=== PATIENT | male | born 1955 | race Caucasian/White ===

== ENCOUNTER 2017-06-08 02:34 | Emergency (ER) | payer OTHER ==
[~2017-06-08] VITALS: Ht 175.3 cm; Wt 86.2 kg
[2017-06-08 03:02] LABS: BASOPHILS # (AUTO) 0.1 (0.0-0.1); EOSINOPHILS # (AUTO) 0.2 (0.0-0.4); EOSINOPHILS % 2.1 % (0.0-6.0); HEMATOCRIT 43.9 % (38.2-49.6); HEMOGLOBIN 15.5 g/dL (14.0-18.0); LYMPHOCYTES # (AUTO) 1.1 (1.0-3.2); LYMPHOCYTES % 15.5 % (18.0-39.1); MEAN CORPUSCULAR HEMOGLOBIN 29.2 pg (28-32); MEAN CORPUSCULAR HGB CONC 35.3 g/dL (31-35); MEAN CORPUSCULAR VOLUME 82.8 fL (81-99); MONOCYTES # (AUTO) 0.6 (0.2-0.8); MONOCYTES % 7.7 % (4.4-11.3); NEUTROPHILS # (AUTO) 5.2 (2.1-6.9); NEUTROPHILS % 72.4 % (38.7-80.0); PLATELET COUNT 240 x10e3/uL (140-360); RED CELL DISTRIBUTION WIDTH 12.4 % (11.7-14.4)
[2017-06-08 03:18] LABS: ALANINE AMINOTRANSFERASE 21 IU/L (0-55); ALBUMIN 4.1 g/dL (3.5-5.0); ALBUMIN/GLOBULIN RATIO 1.3 (0.8-2.0); ALKALINE PHOSPHATASE 57 IU/L (40-150); ANION GAP 15.3 mmol/L (8-16); BLOOD UREA NITROGEN 16 mg/dL (7-26); BUN/CREATININE RATIO 12 (6-25); CALCIUM 9.4 mg/dL (8.4-10.2); CARBON DIOXIDE 24 mmol/L (22-29); CHLORIDE 103 mmol/L (98-107); CREATINE KINASE 71 IU/L (30-200); CREATININE, SERUM 1.31 mg/dL (0.72-1.25); EST GLOMERULAR FILTRATION RATE 55 ML/MIN (60-); GLUCOSE 112 mg/dL (74-118); POTASSIUM 4.3 mmol/L (3.5-5.1); SODIUM 138 mmol/L (136-145)
--- NOTE | 2017-06-08 04:24 | Diagnostic Imaging Report ---
EXAM: CHEST 2 VIEWS, PA and lateral ORDER DATE: 06/08/2017 2:48 AM TIME STAMP ON EXAM: 0304 hours INDICATION: Right upper chest pain COMPARISON: None FINDINGS: LINES/TUBES: None LUNGS: No consolidations or edema. PLEURA: No effusions or pneumothorax. HEART AND MEDIASTINUM: Normal size and contour. BONES AND SOFT TISSUES: No acute findings. IMPRESSION: No acute thoracic abnormality. Signed by: Dr. Letha Ocampo M.D. on 06/08/2017 4:20 AM
[2017-06-08 04:59] VITALS: BP 126/79
== END 2017-06-08 05:11 | disposition home or self-care (01) ==
LOC: ER 02:34
DX: R07.89 Other chest pain (principal)
CPT/HCPCS: 36415; 71046; 80053; 82550; 82553; 84484; 85025; 85379; 93005; 99284

== ENCOUNTER 2017-06-18 02:12 | Emergency (ER) | payer OTHER ==
[~2017-06-18] VITALS: Ht 175.3 cm; Wt 86.2 kg
--- OUTSIDE RECORDS SUMMARY | 2017-06-18 02:15 | XMS REPORT ---
Author Author [facility] Address Unknown Phone Unavailable Care Team Providers Care Human Insights Lead Ads Marketing Name Role Phone NUBIA OCHOA Unavailable Unavailable Problems This patient has no known problems. Allergies, Adverse Reactions, Alerts This patient has no known allergies or adverse reactions. Medications This patient has no known medications. Results Test Description Test Time Test Comments Text Results Atomic Results Result Comments CHEST 2 VIEWS [place] [address] Patient Name: SARAH MORATAYA MR #: [id number] : 1955 Age/Sex: 61/M Req #: [id number] [facility] [place] Physician: Ordered by: NUBIA OCHOA MD Report #: [id number] Location: ER Room/Bed: Procedure: [id number] DX/CHEST 2 VIEWS Exam Date: 06/08/17 Exam Time : 0305 REPORT STATUS: Signed EXAM: CHEST 2 VIEWS, PA and lateral ORDER DATE: 06/08/2017 2:48 AM TIME STAMP ON EXAM: 0304 hours INDICATION: Right upper chest pain COMPARISON: None FINDINGS: LINES/TUBES: None LUNGS: No consolidations or edema. PLEURA: No effusions or pneumothorax. HEART AND MEDIASTINUM: Normal size and contour. BONES AND SOFT TISSUES: No acute findings. IMPRESSION: No acute thoracic abnormality. Signed by: Dr. Princess Villanueva M.D. on 06/08/2017 4: 20 AM Dictated By: PRINCESS VILLANUEVA MD 9 Transcribed By: JOSELYN on 06/08/17419 COPY TO: NUBIA OCHOA MD
--- OUTSIDE RECORDS SUMMARY | 2017-06-18 02:15 | XMS REPORT | Continuity of Care Document ---
Author Author [facility] Organization [facility] Address [address] [place] [address] Phone Unavailable Care Team Providers Care Tankroom Worker Name Role Phone ARIN NOBLES MD PCP Insurance Providers Guarantor Markel Gooden Address [address] [place] [address] Email [email or web address] Payer Aet[employer] [facility] Care Policy Number [id number] Subscriber's Name Markel Gooden Relationship 18 Self / Same As Patient Group Number [id number] Group Name [place] [employer] Effective Date 17 Advance Directives Directive Response Recorded Date/Time Does the patient have an advance directive? No 04/15/14 8:11am If yes, is advance directive on file with [facility]? No 04/15/14 8:11am If not on file with [facility] will patient provide a copy? No 04/15/14 8:11am Do you have a Directive to Physician? No 06/08/17 2:30am Do you have a Medical Power of Solutions Sales Consultant? No 06/08/17 2:30am Do you have an out of hospital Do Not Resuscitate Order? No 06/08/17 2:30am Do you have any special needs we should be aware of? No 06/08/17 2:30am Do you have a support person here with you today? Yes 06/08/17 2:30am Did patient receive Notice of Privacy Practices? Yes 06/08/17 2:30am Did patient receive patient rights and responsibilities? Yes 06/08/17 2:30am Problems No problem information available. Medications No known medications. Social History No social history information available. Hospital Discharge Instructions No hospital discharge instruction information available. Plan of Care Discharge Date 06/08/17 5:11am Disposition HOME, SELF-CARE Condition at Discharge Stable Instructions/Education Provided Chest Pain - Chest Wall Forms Provided Work/School Excuse Prescriptions See Medication Section Referrals ARIN NOBLES MD Order Date: Call for an appointment Address: [address] [place] [id number] Additional Instructions/Education dc home follow up with pcp take meds as directed return to the er with any emergent condtions Functional Status No functional status information available. Allergies, Adverse Reactions, Alerts Allergen Type Severity Reaction Status Last Updated Codeine Allergy Unknown Active 06/08/17 Immunizations No immunization information available. Vital Signs Acute Vital Signs Vital Response Date/Time Temperature (Fahrenheit) 98.5 degrees F (97.6 - 99.5) 06/08/2017 4:59am Pulse Pulse Rate (adult) 80 bpm (60 - 90) 06/08/2017 4:59am Respiratory Rate 20 bpm (12 - 24) 06/08/2017 4:59am Blood Pressure 126/79 mm Hg 06/08/2017 4:59am Height 5 ft 9 in 06/08/2017 2:47am Weight 190 lb 06/08/2017 2:47am Body Mass Index 28.1 kg/m^2 06/08/2017 2:47am Results Laboratory Results Test Name Result Units Flags Reference Collection Date/Time Result Date/ Time Comments White Blood Count 7.14 x10e3/uL 4.8-10.8 06/08/2017 2:53am 06/08/2017 3 :03am Red Blood Count 5.30 x10e6/uL 4.3-5.7 06/08/2017 2:53am 06/08/2017 3: 03am Hemoglobin 15.5 g/dL 14.0-18.0 06/08/2017 2:53am 06/08/2017 3:03am Hematocrit 43.9 % 38.2-49.6 06/08/2017 2:53am 06/08/2017 3:03am Mean Corpuscular Volume 82.8 fL 81-99 06/08/2017 2:53am 06/08/2017 3: 03am Mean Corpuscular Hemoglobin 29.2 pg 28-32 06/08/2017 2:53am 06/08/2017 3:03am Mean Corpuscular Hemoglobin Concent 35.3 g/dL H 31-35 06/08/2017 2:53am 06/08/2017 3:03am Red Cell Distribution Width 12.4 % 11.7-14.4 06/08/2017 2:53am 2017 3:03am Platelet Count 240 x10e3/uL 140-360 06/08/2017 2:53am 06/08/2017 3: 03am Neutrophils (%) (Auto) 72.4 % 38.7-80.0 06/08/2017 2:53am 06/08/2017 3: 03am Lymphocytes (%) (Auto) 15.5 % L 18.0-39.1 06/08/2017 2:53am 06/08/2017 3 :03am Monocytes (%) (Auto) 7.7 % 4.4-11.3 06/08/2017 2:53am 06/08/2017 3: 03am Eosinophils (%) (Auto) 2.1 % 0.0-6.0 06/08/2017 2:53am 06/08/2017 3: 03am Basophils (%) (Auto) 1.0 % 0.0-1.0 06/08/2017 2:53am 06/08/2017 3:03am IM GRANULOCYTES % 1.3 % H 0.0-1.0 06/08/2017 2:53am 06/08/2017 3:03am Neutrophils # (Auto) 5.2 2.1-6.9 06/08/2017 2:53am 06/08/2017 3:03am Lymphocytes # (Auto) 1.1 1.0-3.2 06/08/2017 2:53am 06/08/2017 3:03am Monocytes # (Auto) 0.6 0.2-0.8 06/08/2017 2:53am 06/08/2017 3:03am Eosinophils # (Auto) 0.2 0.0-0.4 06/08/2017 2:53am 06/08/2017 3:03am Basophils # (Auto) 0.1 0.0-0.1 06/08/2017 2:53am 06/08/2017 3:03am Absolute Immature Granulocyte (auto 0.09 x10e3/uL 0-0.1 06/08/2017 2: 53am 06/08/2017 3:03am D-Dimer Quantitative (PE/DVT) 0.28 ug/mLFEU 0.00-0.45 06/08/2017 2:53am 06/08/2017 3:12am Sodium Level 138 mmol/L 136-145 06/08/2017 2:53am 06/08/2017 3:21am Potassium Level 4.3 mmol/L 3.5-5.1 06/08/2017 2:53am 06/08/2017 3:21am Chloride Level 103 mmol/L 98-107 06/08/2017 2:53am 06/08/2017 3:21am Carbon Dioxide Level 24 mmol/L 22-06/08/2017 2:53am 06/08/2017 3: 21am Anion Gap 15.3 mmol/L 8-06/08/2017 2:53am 06/08/2017 3:21am Blood Urea Nitrogen 16 mg/dL 7-06/08/2017 2:53am 06/08/2017 3:21am Creatinine 1.31 mg/dL H 0.72-1.25 06/08/2017 2:53am 06/08/2017 3:21am BUN/Creatinine Ratio 12 6-06/08/2017 2:53am 06/08/2017 3:21am Estimat Glomerular Filtration Rate 55 ML/MIN L 60- 06/08/2017 2:53am 3:21am Ranges were taken from the National Kidney Disease Education Program and the National Kidney Foundation literature. Reference ranges: 60 or greater: Normal 16-59 (for 3 consecutive months): Chronic kidney disease 15 or less: Kidney failure Glucose Level 112 mg/dL 74-118 06/08/2017 2:53am 06/08/2017 3:21am Calcium Level 9.4 mg/dL 8.4-10.2 06/08/2017 2:53am 06/08/2017 3:21am Total Bilirubin 0.6 mg/dL 0.2-1.2 06/08/2017 2:53am 06/08/2017 3:21am Aspartate Amino Transf (AST/SGOT) 16 IU/L 5-34 06/08/2017 2:53am 2017 3:21am Alanine Aminotransferase (ALT/SGPT) 21 IU/L 0-55 06/08/2017 2:53am 3:21am Total Protein 7.3 g/dL 6.5-8.1 06/08/2017 2:53am 06/08/2017 3:21am Albumin 4.1 g/dL 3.5-5.0 06/08/2017 2:53am 06/08/2017 3:21am Globulin 3.2 g/dL 2.3-3.5 06/08/2017 2:53am 06/08/2017 3:21am Albumin/Globulin Ratio 1.3 0.8-2.0 06/08/2017 2:53am 06/08/2017 3: 21am Alkaline Phosphatase 57 IU/L 40-150 06/08/2017 2:53am 06/08/2017 3: 21am Creatine Kinase 71 IU/L 30-200 06/08/2017 2:53am 06/08/2017 3:21am Creatine Kinase MB 0.60 ng/mL 0-5.0 06/08/2017 2:53am 06/08/2017 3: 25am Troponin I < 0.001 ng/mL 0-0.300 06/08/2017 2:53am 06/08/2017 3:25am Procedures Procedure Status Date Provider(s) X-ray of chest, two views Active 06/08/17 NUBIA OCHOA MD Encounters Encounter Location Arrival/Admit Date Discharge/Depart Date Attending Provider Departed Emergency Room [facility] 06/08/17 2:34am 5:11am NUBIA OCHOA MD
[2017-06-18] MEDS ORDERED: ASPIRIN 81 MG CHEW TAB PO ONE (02:30)
[2017-06-18 02:31] LABS: BASOPHILS # (AUTO) 0.1 (0.0-0.1); BASOPHILS % 1.2 % (0.0-1.0); EOSINOPHILS # (AUTO) 0.2 (0.0-0.4); EOSINOPHILS % 3.8 % (0.0-6.0); HEMATOCRIT 44.9 % (38.2-49.6); HEMOGLOBIN 15.6 g/dL (14.0-18.0); LYMPHOCYTES # (AUTO) 1.4 (1.0-3.2); LYMPHOCYTES % 23.3 % (18.0-39.1); MEAN CORPUSCULAR HEMOGLOBIN 29.1 pg (28-32); MEAN CORPUSCULAR HGB CONC 34.7 g/dL (31-35); MEAN CORPUSCULAR VOLUME 83.6 fL (81-99); MONOCYTES # (AUTO) 0.6 (0.2-0.8); MONOCYTES % 10.1 % (4.4-11.3); NEUTROPHILS # (AUTO) 3.5 (2.1-6.9); NEUTROPHILS % 60.1 % (38.7-80.0); PLATELET COUNT 241 x10e3/uL (140-360); RED BLOOD COUNT 5.37 x10e6/uL (4.3-5.7); RED CELL DISTRIBUTION WIDTH 12.2 % (11.7-14.4)
[2017-06-18 02:58] LABS: ALANINE AMINOTRANSFERASE 20 IU/L (0-55); ALBUMIN 4.1 g/dL (3.5-5.0); ALBUMIN/GLOBULIN RATIO 1.2 (0.8-2.0); ALKALINE PHOSPHATASE 55 IU/L (40-150); AMYLASE 41 U/L (25-125); ANION GAP 15.1 mmol/L (8-16); BLOOD UREA NITROGEN 20 mg/dL (7-26); BUN/CREATININE RATIO 14 (6-25); CALCIUM 9.3 mg/dL (8.4-10.2); CARBON DIOXIDE 26 mmol/L (22-29); CHLORIDE 103 mmol/L (98-107); CREATINE KINASE 56 IU/L (30-200); CREATININE, SERUM 1.41 mg/dL (0.72-1.25); EST GLOMERULAR FILTRATION RATE 51 ML/MIN (60-); GLUCOSE 110 mg/dL (74-118); LIPASE 22 U/L (8-78); POTASSIUM 4.1 mmol/L (3.5-5.1); SODIUM 140 mmol/L (136-145)
--- NOTE | 2017-06-18 03:29 | Diagnostic Imaging Report ---
EXAMINATION: CHEST 2 VIEWS INDICATION: Right chest pain. COMPARISON: 06/08/2017 FINDINGS: TUBES and LINES: None. LUNGS: Lungs are well inflated. Lungs are clear. There is no evidence of pneumonia or pulmonary edema. PLEURA: No pleural effusion or pneumothorax. HEART AND MEDIASTINUM: The cardiomediastinal silhouette is unremarkable. Calcified lymph nodes in the aortopulmonary window. BONES AND SOFT TISSUES: No acute osseous lesion. Soft tissues are unremarkable. UPPER ABDOMEN: No free air under the diaphragm. IMPRESSION: No acute thoracic abnormality. Signed by: Dr. Jose Wright M.D. on 06/18/2017 3:25 AM
--- NOTE | 2017-06-18 03:50 | Diagnostic Imaging Report ---
EXAM: Right Upper Quadrant Ultrasound INDICATION: Right upper quadrant pain, gallstones COMPARISON: None. TECHNIQUE: Transverse and longitudinal images of the right upper abdomen were obtained. FINDINGS: Liver: Size: 15.2 cm in the right midclavicular line, normal Appearance: Normal echogenicity, smooth contour Mass: No focal masses Gallbladder: Stones/Sludge: None Wall: 0.2 cm Appearance: No wall thickening, pericholecystic fluid or hydrops. Sonographic Cisse's Sign: Negative Bile Ducts: Intrahepatic Ducts: No dilatation Extrahepatic Ducts: Common bile duct measures 0.5 cm, no dilatation Pancreas: Incompletely visualized due to overlying bowel gas, but no abnormality identified involving the visualized portions of the pancreas. Kidneys: Length: Right 9.4 cm Echogenicity: Normal Collecting System: No hydronephrosis Stone: None Cyst/Mass: Minimally septated 1.4 x 1.6 x 1.3 cm cyst in the right kidney Vessels: Aorta: Difficult to visualize. Inferior Vena Cava: Difficult to visualized Main Portal Vein: 1.0 cm, normal size with hepatopetal flow. Free Fluid: No ascites or pleural effusion IMPRESSION: 1. Limited exam due to large amount of air in the bowel. 2. No evidence of gallstones or gallbladder wall thickening. Signed by: Dr. Jose Wright M.D. on 06/18/2017 3:46 AM
[2017-06-18 04:19] VITALS: BP 122/80
== END 2017-06-18 04:37 | disposition home or self-care (01) ==
LOC: ER 02:12
DX: R07.89 Other chest pain (principal); I10 Essential (primary) hypertension; N35.9 Urethral stricture, unspecified
CPT/HCPCS: 36415; 71046; 76705; 80053; 82150; 82550; 82553; 83690; 84484; 85025; 85379; 93005; 99284

== ENCOUNTER 2018-05-22 21:23 | Emergency (ER) | payer OTHER ==
[~2018-05-22] VITALS: Ht 175.3 cm; Wt 86.2 kg
--- OUTSIDE RECORDS SUMMARY | 2018-05-22 21:25 | XMS REPORT | Continuity of Care Document ---
Author Author [facility] Address Unknown Phone Unavailable Problems Problem Status Onset Date Classification Date Reported Comments Source N13.30 Active 08/25/2016 [facility] Back pain Active Problem 10/09/2016 [facility] Bronchitis Resolved Problem 10/09/2016 [facility] Diarrhea Resolved Problem 10/09/2016 [facility] Environmental allergies Resolved Problem 10/09/2016 [facility] Acid reflux Resolved Problem 10/09/2016 [facility] H/O mumps Resolved Problem 10/09/2016 [facility] Hx of bladder infections Resolved Problem 10/09/2016 [facility] History of tendonitis Resolved Problem 10/09/2016 [facility] History of kidney stones Resolved Problem 10/09/2016 [facility] Personal history of urinary infections(<span ID="[id number]">Confirmed</span>) Resolved Problem 10/09/2016 [facility] High blood cholesterol Resolved Problem 10/09/2016 [facility] Asthma Resolved Problem 10/09/2016 [facility] Incomplete bladder emptying Active Problem 10/09/2016 [facility] Arthritis Resolved Problem 10/09/2016 [facility] Nephrolithiasis Active Problem 10/09/2016 [facility] Left flank pain Active Problem 10/09/2016 [facility] BPH (<span ID="[id number]">Confirmed</span>) Active Problem 10/09/2016 [facility] Prostate cancer screening Active Problem 10/09/2016 [facility] Renal cyst, right Active Problem 10/09/2016 [facility] Slow urinary stream Active Problem 10/09/2016 [facility] Urethral stricture Active Problem 10/09/2016 [facility] Chicken pox Resolved Problem 10/09/2016 [facility] Vertigo Resolved Problem 10/09/2016 [facility] Warts Resolved Problem 10/09/2016 [facility] Medications Medication Details Route Status Patient Instructions Ordering Provider Order Date Source Allergies, Adverse Reactions, Alerts Substance Category Reaction Severity Reaction type Status Date Reported Comments Source Immunizations Immunization Date Given Site Status Last Updated Comments Source Results Order Name Results Value Reference Range Date Interpretation Comments Source Renal Lasix Scan NM Renal Lasix Scan NM EXAM: NM Kidney Imaging Vascular Flow Function Multiple Studies w wo Intervent DATE: 10/06/2016 10:16 AM CDT INDICATION: History of urethral stricture, evaluate for urinary obstruction and renal function. COMPARISON: None available TECHNIQUE: After intravenous administration of 5 mCi of technetium 99m MAG3, dynamic blood flow images followed by sequential static images through 45 minutes were obtained. Lasix was administered at 20 minutes into the study, with additional images post Lasix. FINDINGS: There is prompt and good perfusion, extraction, and excretion from both kidneys consistent with good renal function and no evidence of urinary tract obstruction. The right renal pelvis is mildly prominent. The T 1/2 max post Lasix administration is 4.2 minutes in the right kidney and 9.9 minutes in the left kidney (normal is equal or less than 10 minutes). Post void images demonstrate mild residual tracer accumulation in the right renal pelvis. The split function in the right kidney is 47% and in the left kidney is 53% which are within normal limits. IMPRESSION: 1. Normal bilateral renal function with no evidence of urinary tract obstruction. Mildly prominent right renal pelvis is identified. 2. The split function in the right kidney is 47% and in the left kidney is 53%. 3. The total effective renal plasma flow (ERPF) is 426 ml/min, adequate for the patient's age (normal is 600 +/- 100 ml/min). 4. The total MAG 3 clearance is 226 ml/min ( normal is 300 +/-70 ml/min). 10/06/2016 - - This report was dictated by a Representative Government Relations/Fellow. I have personally reviewed the images as well as the Resident's interpretation and agree with the findings. Read by: Alicia Khanna MD Resident: Alicia Khanna MD Dictated Date/time: 10/06/16 13:05 Electronically Signed by: Erika Morrow MD 10/06/16 17:23 FINAL REPORT [facility] Vital Signs Vital Sign Value Date Comments Source Encounters Location Location Details Encounter Type Encounter Number Reason For Visit Attending Provider ADM Date DC Date Status Source Outpatient [id number] [facility] 08/18/2016 Active [facility] Outpatient [id number] T[facility] 10/06/2016 10/07/2016 [facility] Outpatient [id number] [facility] 10/26/2016 Active [facility] Procedures Procedure Code Date Perfomer Comments Source Circumcision [id number] [facility] Colonoscopy [id number] [facility] Lithotripsy [id number] [facility] Ureteroscopy [id number] [facility]
--- OUTSIDE RECORDS SUMMARY | 2018-05-22 21:25 | XMS REPORT | Summary of Care ---
Author Author [facility] Organization [facility] Address Unknown Phone Unavailable Encounter HQ Karoline_eveline(JOSE) [id number] Date(s): 10/06/16 - 10/06/16 [facility] [address] [place] [address] Discharge Disposition: Home or Self Care Attending Physician: Chino Clarke MD Referring Physician: Chino Clarke MD Vital Signs No data available for this section Problem List Condition Effective Dates Status Health Status Informant Back pain(Confirmed) Active Bronchitis(Confirmed Resolved ) Diarrhea(Confirmed) Resolved Environmental Resolved allergies(Confirmed) Acid Resolved reflux(Confirmed) H/O mumps(Confirmed) Resolved Hx of bladder Resolved infections(Confirmed ) History of Resolved tendonitis(Confirmed ) History of kidney Resolved stones(Confirmed) Personal history of Resolved urinary (tract) infections(Confirmed ) High blood Resolved cholesterol(Confirme d) Asthma(Confirmed) Resolved Incomplete bladder Active emptying(Confirmed) Arthritis(Confirmed) Resolved Nephrolithiasis(Conf Active [facility]med) Left flank Active pain(Confirmed) BPH (benign Active prostatic hyperplasia)(Confirm ed) Prostate cancer Active screening(Confirmed) Renal cyst, Active right(Confirmed) Slow urinary Active stream(Confirmed) Urethral Active stricture(Confirmed) Chicken Resolved pox(Confirmed) Vertigo(Confirmed) Resolved Warts(Confirmed) Resolved Allergies, Adverse Reactions, Alerts No data available for this section Medications No data available for this section Results No data available for this section Immunizations No data available for this section Procedures Procedure Date Related Diagnosis Body Site Circumcision Colonoscopy Lithotripsy Ureteroscopy Social History Social History Type Response Smoking Status Never smoker; Exposure to Tobacco Smoke None; Cigarette Smoking Last 365 Days No; Reg Smoking Cessation Counseling No Assessment and Plan No data available for this section
== END 2018-05-22 21:50 | disposition home or self-care (01) ==
LOC: ER 21:23
DX: R07.89 Other chest pain (principal); S29.011A Strain of muscle and tendon of front wall of thorax, initial encounter; E78.5 Hyperlipidemia, unspecified
CPT/HCPCS: 93005; 99282

== ENCOUNTER 2019-12-28 11:12 | Emergency (ER) | payer MEDICARE ==
[~2019-12-28] VITALS: Ht 175.3 cm; Wt 83.9 kg
[2019-12-28] MEDS ORDERED: METOCLOPRAMIDE HCL 10 MG/2ML VIAL IV ONE (11:30)
[2019-12-28] MEDS ORDERED: DIPHENHYDRAMINE HCL INJ 50 MG/ML VIAL IV ONE (11:30)
[2019-12-28] MEDS ORDERED: MECLIZINE HCL 12.5 MG TAB PO ONE (11:30)
[2019-12-28 11:43] LABS: BASOPHILS # (AUTO) 0.1 (0.0-0.1); BASOPHILS % 1.4 % (0.0-1.0); EOSINOPHILS # (AUTO) 0.2 (0.0-0.4); EOSINOPHILS % 2.9 % (0.0-6.0); HEMATOCRIT 41.9 % (38.2-49.6); HEMOGLOBIN 14.4 g/dL (14.0-18.0); LYMPHOCYTES # (AUTO) 1.2 (1.0-3.2); LYMPHOCYTES % 21.4 % (18.0-39.1); MEAN CORPUSCULAR HEMOGLOBIN 28.4 pg (28-32); MEAN CORPUSCULAR HGB CONC 34.4 g/dL (31-35); MEAN CORPUSCULAR VOLUME 82.6 fL (81-99); MONOCYTES # (AUTO) 0.8 (0.2-0.8); MONOCYTES % 14.2 % (4.4-11.3); NEUTROPHILS # (AUTO) 3.3 (2.1-6.9); NEUTROPHILS % 59.2 % (38.7-80.0); PLATELET COUNT 260 x10e3/uL (140-360); RED BLOOD COUNT 5.07 x10e6/uL (4.3-5.7); RED CELL DISTRIBUTION WIDTH 11.9 % (11.7-14.4)
[2019-12-28 11:47] LABS: INR 0.93; PROTHROMBIN TIME 12.9 seconds (11.9-14.5)
[2019-12-28 11:55] LABS: ALANINE AMINOTRANSFERASE 28 IU/L (0-55); ALBUMIN 4.2 g/dL (3.5-5.0); ALBUMIN/GLOBULIN RATIO 1.8 (0.8-2.0); ALKALINE PHOSPHATASE 53 IU/L (40-150); ANION GAP 18.3 mmol/L (8-16); BLOOD UREA NITROGEN 15 mg/dL (7-26); BUN/CREATININE RATIO 11 (6-25); CALCIUM 8.6 mg/dL (8.4-10.2); CARBON DIOXIDE 19 mmol/L (22-29); CHLORIDE 105 mmol/L (98-107); CREATINE KINASE 55 IU/L (30-200); CREATININE, SERUM 1.34 mg/dL (0.72-1.25); EST GLOMERULAR FILTRATION RATE 53 ML/MIN (60-); GLUCOSE 131 mg/dL (74-118); POTASSIUM 3.3 mmol/L (3.5-5.1); SODIUM 139 mmol/L (136-145)
[2019-12-28] MEDS ORDERED: SODIUM CHLORIDE 0.9% 1000ML 1,000 ML IV STA (12:15)
--- NOTE | 2019-12-28 12:31 | Emergency Department Note ---
History of Present Illnes History of Present Illness Chief Complaint: General Medicine Complaints History of Present Illness This is a 64 year old male arrived to the ED with complaints of dizziness and blurry vision. Patient states he feels like the room is spinning and he cannot walk with steady gait. Patient states he has had attacks like this in the past was told was vertigo.. Historian: Patient, Family Member Arrival Mode: [facility] Treatment MANAGER ACCOUNT MANAGEMENT: IV Onset (how long ago): hour(s) Radiation: Reports non-radiation Severity: moderate Onset quality: sudden Duration (how long): hour(s) Timing of current episode: constant Progression: waxing and waning Past Medical/Family History Physician Review I have reviewed the patient's past medical and family history. Any updates have been documented here. Past Medical History Recent Fever: No Clinical Suspicion of Infectio: No New/Unexplained Change in Ment: No Past Medical History: Anxiety, Hyperlipedemia, Osteoarthritis Other Medical History: ARTHRITIS IN BACK VERTIGO Other Surgery: URETHRAL STRICTURES x2 VOCAL CORD POLYP REMOVAL Social History Smoking Cessation: Never Smoker Counseling Performed: No Alcohol Use: None Any Illegal Drug Use: No Other Last Tetanus: UTD Any Pre-Existing Lines (PICC,: No Physical Exam Related Data Allergies: Coded Allergies: Rkzvnjd-Dyc-Lfl Reductase Inhibitor (Verified Allergy, Intermediate, 12/28/19) codeine (Verified Allergy, Unknown, 12/28/19) Triage Vital Signs Vital Signs Date Time Temp Pulse Resp B/P (MAP) Pulse Ox O2 Delivery O2 Flow Rate FiO2 12/28/19 11:12 97.8 73 18 145/92 100 Room Air Vital signs reviewed: Yes Physical Exam CONSTITUTIONAL Constitutional: Present well-developed, Present well-nourished, Present ill appearing, Present other (actively vomiting at bedside) HENT HENT: Present normocephalic, Present atraumatic, Present oropharynx clear/moist, Present nose normal HENT L/R: Present left ext ear normal, Present right ext ear normal EYES Eyes: Reports PERRL, Reports conjunctivae normal NECK Neck: Present ROM normal PULMONARY Pulmonary: Present effort normal, Present breath sounds normal CARDIOVASCULAR Cardiovascular: Present regular rhythm, Present heart sounds normal, Present capillary refill normal, Present normal rate GASTROINTESTINAL Abdominal: Present soft, Present nontender, Present bowel sounds normal GENITOURINARY Genitourinary: Present exam deferred SKIN Skin: Present warm, Present dry MUSCULOSKELETAL Musculoskeletal: Present ROM normal NEUROLOGICAL Neurological: Present alert, Present oriented x 3, Present no gross motor or sensory deficits PSYCHOLOGICAL Psychological: Present mood/affect normal, Present judgement normal Results Laboratory Result Diagram: 12/28/19 1123 Laboratory Laboratory Tests Test 12/28/19 11:23 White Blood Count 5.57 x10e3/uL (4.8-10.8) Red Blood Count 5.07 x10e6/uL (4.3-5.7) Hemoglobin 14.4 g/dL (14.0-18.0) Hematocrit 41.9 % (38.2-49.6) Mean Corpuscular Volume 82.6 fL (81-99) Mean Corpuscular Hemoglobin 28.4 pg (28-32) Mean Corpuscular Hemoglobin Concent 34.4 g/dL (31-35) Red Cell Distribution Width 11.9 % (11.7-14.4) Platelet Count 260 x10e3/uL (140-360) Neutrophils (%) (Auto) 59.2 % (38.7-80.0) Lymphocytes (%) (Auto) 21.4 % (18.0-39.1) Monocytes (%) (Auto) 14.2 % (4.4-11.3) Eosinophils (%) (Auto) 2.9 % (0.0-6.0) Basophils (%) (Auto) 1.4 % (0.0-1.0) Neutrophils # (Auto) 3.3 (2.1-6.9) Lymphocytes # (Auto) 1.2 (1.0-3.2) Monocytes # (Auto) 0.8 (0.2-0.8) Eosinophils # (Auto) 0.2 (0.0-0.4) Basophils # (Auto) 0.1 (0.0-0.1) Absolute Immature Granulocyte (auto 0.05 x10e3/uL (0-0.1) Prothrombin Time 12.9 seconds (11.9-14.5) Prothromb Time International Ratio 0.93 Imaging Imaging results reviewed: Yes Procedures 12 Lead ECG Interpretation ECG Interpretation : ECG: ECG 1 Irrigation Foreman: Interpreted by ED physician Prior ECG tracings: reviewed Rhythm: sinus rhythm QRS axis: normal ST segments normal: Yes Assessment & Plan Medical Decision Making MDM 64-year-old male arrives to the ED with complaints of dizziness nausea vomiting and tinnitus. Patient with similar episodes in the past. Patient actively vomiting on arrival. Fluid resuscitation done, patient received 8 mg of Zofran by EMS with no improvement. Reglan and Benadryl given in the ED with improvement of vomiting noted. CT angiogram of his brain to rule out posterior cerebellar infarct. Patient noted improved with meclizine, Reglan and IV fluids and stable for discharge home. Assessment & Plan Final Impression: (1) Vertigo Depart Disposition: HOME, SELF-CARE Last Vital Signs Date Time Temp Pulse Resp B/P (MAP) Pulse Ox O2 Delivery O2 Flow Rate FiO2 12/28/19 11:12 97.8 73 18 145/92 100 Room Air Home Meds Active Scripts Metoclopramide Hcl (REGLAN) 10 Mg Tablet, 10 MG PO Q8HR PRN for NAUSEA, #14 TAB Prov:MYRNA SALAS DO 12/28/19 Ondansetron Hcl* (ZOFRAN*) 4 Mg Tablet, 4 MG SL Q6H PRN for NAUSEA, #14 MG 0 Refills Prov:MYRNA SALAS DO 12/28/19 Meclizine Hcl (MECLIZINE HCL) 12.5 Mg Tablet, 12.5 MG PO DAILY PRN for DIZZINE SS, #30 TAB Prov:MYRNA SALAS DO 12/28/19 Medications in the ED Meclizine HCl 25 mg ONCE ONCE PO ; Start 12/28/19 at 11:30; Stop 12/28/19 at 11:39; Status DC Metoclopramide HCl 10 mg ONCE ONCE IV ; Start 12/28/19 at 11:30; Stop 12/28/19 at 11:41; Status DC Diphenhydramine HCl 25 mg NOW ONCE IV ; Start 12/28/19 at 11:30; Stop 12/28/19 at 11:41; Status DC MYRNA SALAS DO Dec 28, 2019 12:30
[2019-12-28 12:43] LABS: CLARITY,URINE CLEAR (CLEAR); COLOR,URINE YELLOW (YELLOW); LEUKOCYTE ESTERASE ,URINE NEGATIVE (NEGATIVE); NITRITE,URINE NEGATIVE (NEGATIVE); PROTEIN,URINE DIPSTICK TRACE (NEGATIVE)
[2019-12-28 12:44] LABS: BILIRUBIN,URINE NEGATIVE (NEGATIVE); KETONES,URINE 1+ (NEGATIVE); URINE UROBILINOGEN 0.2 mg/dL (0.2 - 1)
[2019-12-28] MEDS ORDERED: PROMETHAZINE HCL (IM) 25 MG/ML VIAL IM ONE (12:45)
[2019-12-28 12:47] LABS: WBC,URINE (MAN) 0-5 /HPF (0-5)
[2019-12-28 12:48] LABS: BACTERIA,URINE RARE /HPF; EPITHELIAL CELLS,URINE RARE /LPF; MUCUS,URINE FEW (RARE); RBC,URINE 0-5 /HPF (0-5)
--- NOTE | 2019-12-28 13:29 | Diagnostic Imaging Report ---
EXAMINATION: CHEST SINGLE (PORTABLE) INDICATION: Dizziness COMPARISON: Chest radiograph 04/17/2019 FINDINGS: LINES/TUBES:None LUNGS:The lungs are well-inflated. No focal consolidation or pulmonary edema. PLEURA:No pleural effusion or pneumothorax. MEDIASTINUM:The cardiomediastinal silhouette appears normal in size and shape. BONES/SOFT TISSUES:No acute osseous injury. ABDOMEN:No free air under the diaphragm. IMPRESSION: No focal pneumonia or pulmonary edema. Signed by: Mick Asif MD on 12/28/2019 1:25 PM
[2019-12-28] MEDS ORDERED: SODIUM CHLORIDE 0.9% 50ML 50 ML ONE (14:29)
[2019-12-28] MEDS ORDERED: IOPAMIDOL 370 MG/ML 200 ML INFUS..BTL INJ ONE (14:30)
--- NOTE | 2019-12-28 15:30 | Diagnostic Imaging Report ---
Examination: Intracranial CT Angiogram with Contrast History:^Y ^[employer] ^[id number] ^[id number]. Dizziness. Comparison studies:None Technique: Axial images were obtained from the skull base to the vertex before and after the intravenous administration of contrast. Coronal and sagittal images reconstructed from the axial data. Intravenous contrast: 100 cc of Isovue 370. Computer generated maximum intensity projection and 3D images of the anterior and posterior circulations was performed on a separate workstation. Dose modulation, iterative reconstruction, and/or weight based adjustment of the mA/kV was utilized to reduce the radiation dose to as low as reasonably achievable. Findings: Internal carotid arteries: Nonstenotic atherosclerotic calcification of the bilateral cavernous and supraclinoid internal carotid arteries. Anterior cerebral arteries: Patent A1 and A2 segments. Middle cerebral arteries: Patent M1 and M2 segments. Posterior cerebral arteries: Patent P1 and P2. Vertebro-basilar system: Patent. Nonstenotic calcific plaque at the intradural left vertebral artery and is distal to the origin of the right posterior inferior cerebellar artery. Anatomical variants: Anterior communicating artery :Present Posterior communicating arteries: Not visualized. Vertebral arteries: Left dominant. IMPRESSION: 1. No intracranial arterial stenosis or occlusion or vascular malformation. 2. Nonstenotic calcific plaque at the intradural left vertebral artery distal to the origin of the right posterior inferior cerebellar artery. 3. Nonstenotic calcific plaque of the bilateral cavernous and supraclinoid internal carotid arteries appear Signed by: Dr. Zaida Mclaughlin M.D. on 12/28/2019 3:27 PM
[2019-12-28] MEDS ORDERED: REGLAN10 MG PO (15:41)
[2019-12-28] MEDS ORDERED: MECLIZINE HCL12.5 MG PO (15:41)
[2019-12-28] MEDS ORDERED: ZOFRAN4 MG SL (15:41)
--- OUTSIDE RECORDS SUMMARY | 2019-12-29 10:22 | XMS REPORT | Continuity of Care Document ---
Author Author SARAH Duong Organization [employer] Address Unknown Phone Unavailable Care Team Providers Care Registered Sales Assistant Name Role Phone [employer] Unavailable Un available Problems Problem Status Onset Date Classification Date Reported Comments Source N13.30 Active 08/25/2016 [facility] Backache (finding) Active Problem 10/09/2016 [facility] Bronchitis (disorder) Resolved Problem 10/09/2016 [facility] Diarrhea (finding) Resolved Problem 10/09/2016 [facility] Environmental allergy (disorder) Resolved Problem [facility] Gastroesophageal reflux disease (disorder) Resolved Problem 10/09/2016 [facility] History of - mumps (context-dependent category) Resolved Problem 10/09/2016 [facility] History of - recurrent cystitis (context -dependent category) Resolved Pr oblem 10/09/2016 [facility] History of - musculoskeletal disease (co ntext-dependent category) Resolved Pr oblem 10/09/2016 [facility] History of calculus of kidney (situation) Resolved Problem 10/09/2016 [facility] History of - urinary disease (context-de pendent category) Resolved Pr oblem 10/09/2016 [facility] Hypercholesterolemia (disorder) Resolved Problem [facility] Asthma (disorder) Resolved Problem 10/09/2016 [facility] Incomplete emptying of bladder (finding) Active Problem 10/09/2016 [facility] Arthritis (disorder) Resolved Problem 10/09/2016 [facility] Kidney stone (disorder) Active Problem 10/09/2016 [facility] Left flank pain (finding) Acti ve Problem [facility] Benign prostatic hyperplasia (disorder) Active Problem 10/09/2016 [facility] Screening status (finding) Act sergio Problem [facility] Simple renal cyst (disorder) A ctive Problem [facility] Slowing of urinary stream (finding) Active Problem [facility] Urethral stricture (disorder) Active Problem [facility] Varicella (disorder) Resolved Problem 10/09/2016 [facility] Vertigo (finding) Resolved Problem 10/09/2016 [facility] Verruca vulgaris (disorder) Re solved Problem [facility] Medications No Data Provided for This Section Allergies, Adverse Reactions, Alerts No Known Medication Allergies Immunizations No Data Provided for This Section Results No Data Provided for This Section Pathology Reports No Data Provided for This Section Diagnostic Reports Report Value Date Source Renal Lasix Scan NM EXAM: [facility] Vascular Flow Function Multiple Studies w [...] 2. The split function in the right kidne y is 47% and in the left kidney is 53%. 3. The total effective renal plasma flow (ERPF) is 426 ml/min, adequate for the patient's age (normal is 600 +/- 100 ml/min). 4. The total MAG 3 clearance is 226 ml/ min ( normal is 300 +/-70 ml/min). 10/06/2016 [facility] Consultation Notes No Data Provided for This Section Discharge Summaries No Data Provided for This Section History and Physicals No Data Provided for This Section Vital Signs No Data Provided for This Section Encounters Location Location Details Encounter Type Encounter Number Reason For Visit Attending Provider ADM Date DC Date Status Source Outpatient [id number] [facility] 08/18/2016 Active [facility] Outpatient [id number] [facility] 10/06/2016 10/07/2016 [facility] Outpatient [id number] [facility] 10/26/2016 Active [facility] Procedures Procedure Code Date Perfomer Comments Source Circumcision [id number] [facility] Colonoscopy [id number] [facility] Lithotripsy [id number] [facility] Ureteroscopy [id number] [facility] Assessment and Plan No Data Provided for This Section Plan of Care No Data Provided for This Section Social History Social History Date Source Social History TypeResponse Smoking Status Never smoker; Exposure to Tobacco Smoke None; Cigarette Smoking Last 365 Days No; Reg Smoking Cessation Counseling No 08/18/2016 [facility] Family History No Data Provided for This Section Advance Directives No Data Provided for This Section Functional Status No Data Provided for This Section
--- OUTSIDE RECORDS SUMMARY | 2019-12-29 10:23 | XMS REPORT | Continuity of Care Document ---
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 30 Active 08/25/2016 [facility] Diagnosis Active 2016-08-25 00:00:00 2016-10-06 09:58:00 [facility] Chest pain Chest pain Problem Active [facility] Syncope Syncope Problem Active [facility] Bronchitis (disorder) Bron chitis (disorder) Resolved Problem 10/09/2016 [facility] Problem Resolved 2016-10-09 00:16:09 [facility] Diarrhea (finding) Diar selena (finding) Resolved Problem 10/09/2016 [facility] Problem Resolved 2016-10-09 0 0:16:09 [facility] Environmental allergy (disorder) Environmental allergy (disorder) Resolved Problem 10/09/2016 [facility] Problem Res olved 2016-10-09 00:16:09 [facility] Gastroesophageal reflux disease (disorder) Gastroesophageal reflux disease (disorder) Resolved Problem 10/09/2016 [facility] Problem Res[facility] 2016[facility]10[facility] History of - mumps (context-dependent category) History of - mumps (context-dependent category) Resolved Problem 10/09/2016 [facility] Problem Resolved 2016-10-09 00:16:09 [facility] tanisha [facility]donezann History of - recurrent cystitis (context-dependent cat egory) History of - recurrent cystitis (context-dependent category) Resolved Problem 10/09/2016 [facility] Problem Resolved 2016-10-09 0 0:16:09 [facility] History of - musculoskeletal disease (context-dependen t category) History of - musculoskeletal disease (context-dependent category) Resolved Problem 10/09/2016 [facility] Problem Resolved 2016-10-09 00:16:09 [facility] History of calculus of kidney (situation) History of calculus of kidney (situation) Resolved Problem 10/09/2016 [facility] Problem Resolved 2016-10-09 00:16:09 [facility] orial [address] History of - urinary disease (context-dependent catego ry) History of - urinary disease (context-dependent category) Resolved Problem 10/09/2016 [facility] Problem Resolved 2016-10-09 0 0:16:09 [facility] Hypercholesterolemia (disorder) Hypercholesterolemia (disorder) Resolved Problem 10/09/2016 [facility] Problem Res olved 2016-10-09 00:16:09 [facility] saraiba Asthma (disorder) Asth ma (disorder) Resolved Problem 10/09/2016 [facility] Problem Resolved 2016-10-09 0 0:16:09 [facility] Arthritis (disorder) Arth ritis (disorder) Resolved Problem 10/09/2016 [facility] Problem Resolved 2016-10-09 0 0:16:09 [facility] Varicella (disorder) Vari noemy (disorder) Resolved Problem 10/09/2016 [facility] Problem Resolved 2016-10-09 0 0:16:09 [facility] Vertigo (finding) Vert igo (finding) Resolved Problem 10/09/2016 [facility] Problem Resolved 2016-10-09 0 0:16:09 [facility] Verruca vulgaris (disorder) Ve rruca vulgaris (disorder) Resolved Problem 10/09/2016 [facility] Problem Resolved 2016-10-09 00:16:09 [facility] Backache (finding) Back ache (finding) Active Problem 10/09/2016 [facility] Problem Active 2016-10-09 00 :16:09 Tommie Marquis Incomplete emptying of bladder (finding) Incomplete emptying of bladder (finding) Active Problem 10/09/2016 [facility] Problem Active 2016-10-09 00:16:09 Tommie Marquis Kidney stone (disorder) Kidn ey stone (disorder) Active Problem 10/09/2016 [facility] Problem Active 2016-10-09 00:16:09 Tommie Marquis Left flank pain (finding) Left flank pain (finding) Active Problem 10/09/2016 [facility] Problem Active 2016-10-09 00:16:09 Tommie Marquis Benign prostatic hyperplasia (disorder) Benign prostatic hyperplasia (disorder) Active Problem 10/09/2016 [facility] Problem Active 2016-10-09 00:16:09 Osmin Marquis Screening status (finding) Scr eening status (finding) Active Problem 10/09/2016 [facility] Problem Active 2016-10-09 00:16:09 Tommie Marquis Simple renal cyst (disorder) S imple renal cyst (disorder) Active Problem 10/09/2016 [facility] Problem Active 2016-10-09 00:16:09 Tommie Marquis Slowing of urinary stream (finding) Slowing of urinary stream (finding) Active Problem 10/09/2016 [facility] Problem Active 2016-10-09 00:16:09 Tommie Marquis Urethral stricture (disorder) Urethral stricture (disorder) Active Problem 10/09/2016 [facility] Problem Active 2016-10-09 00:16:09 Tommie Marquis Allergies, Adverse Reactions, Alerts Allergy Name Allergy Type Status Severity Reaction(s) Onset Date Inacti ve Date Treating Clinician Comments Source Dwfperk-Aii-Yht Reductase Inhibitor Allergy to substance Active M oderate 2019-12-28 00:00:00 [facility] Codeine Allergy to substance Active 2019-12-28 00:00:00 [facility] Social History Social Habit Start Date Stop Date Quantity Comments Source Sex Assigned At 1955 00:00:00 1955 00:00:00 Male [facility] Smoking Status Start Date Stop Date Source Social History Tommie Marquis Medications Ordered Medication Name Filled Medication Name Start Date Stop Da te Current Medication? Ordering Clinician Indication Dosage Frequency Signature (SIG) Comments [facility] 2019-12-28 15:41:00 Yes 12.5 Daily as needed for Dizziness [facility] Metoclopramide Hcl (Reglan) 10 Mg TABLET Metoclopramid e Hcl (Reglan) 10 Mg TABLET 2019-12-28 15:41:00 Yes 10 Every 8 Marcela rs as needed for Nausea [facility] Ondansetron Hcl (Zofran*) 4 Mg TABLET Ondansetron Hcl (Zofra n*) 4 Mg TABLET 2019-12-28 15:41:00 Yes 4 Every 6 Hours as n eeded for Nausea [facility] Vital Signs Vital Name Observation Time Observation Value Comments Source Weight 2019-12-28 11:12:00 185 [lb_av] [facility] BMI (Body Mass Index) 2019-12-28 11:12:00 27.3 kg/m2 [facility] Body Temperature 2019-04-18 15:00:00 97.8 [degF] [facility] Procedures Procedure Date / Time Performed Performing Clinician Salma e Computed tomography angiography of brain 2019-12-28 00:00:00 [facility] Magnetic resonance imaging of brain without contrast 2019-04 00:00:00 ROMELIA LEARY [facility] Magnetic resonance angiography of neck without contrast 2019 00:00:00 ROMELIA LEARY [facility] Circumcision [facility] Colonoscopy [facility] Lithotripsy [facility] Ureteroscopy [facility] Plan of Care Planned Activity Planned Date Details Comments Source Instructions Vertigo [facility] Encounters Start Date/Time End Date/Time Encounter Type Admission Type Attendi [facility] Care Facility Care Department Encounter ID Source 2019-12-28 11:52:00 2019-12-28 16:24:00 Departed Emergency Room [address] [facility] [id number] [facility] 2019-04-17 09:36:00 2019-04-18 17:41:00 Discharged Inpatient (obs) [address] [facility] [id number] [facility] 2018-05-22 21:23:00 2018-05-22 21:50:00 Departed Emergency Room [facility] [id number] [facility] 2017-06-18 02:12:00 2017-06-18 04:37:00 Departed Emergency Room ER NUBIA OCHOA [facility] [id number] [facility] 2017-06-08 02:34:00 2017-06-08 05:11:00 Departed Emergency Room ER NUBIA OCHOA [facility] [id number] [facility] 2016-10-06 09:47:00 2016-10-06 23:59:00 Outpatient Chino Clarke [facility] [id number] Results Test Description Test Time Test Comments Results Result Comments Source CTA BRAIN 2019-12-28 14:59:00 [place] [address] Patient Name: SARAH MORATAYA MR #: [id number] : 1955 Age/Sex: 64/M Req #: [id number] Adm Physician: Ordered by: MYRNA SALAS DO Report #: [id number] Location: ER Room/Bed: Procedure: [id number] CT/CTA BRAIN Exam Date: 12/28/19 Exam Time: 1430 REPORT STATUS: Signed Examination: Intracranial CT Angiogram with Contrast [id number]. Dizziness. Comparison studies:None Technique: Axial images were obtained from the skull base to the vertex before and after the intravenous administration of contrast. Coronal and sagittal images reconstructed from the axial data. Intravenous contrast: 100 cc of Isovue 370. Computer generated maximum intensity projection and 3D images of the anterior and posterior circulations was performed on a separate workstation. Dose modulation, iterative reconstruction, and/or weight based adjustment of the mA/kV was utilized to reduce the radiation dose to as low as reasonably achievable. Findings: Internal carotid arteries: Nonstenotic atherosclerotic calcification of the bilateral cavernous and supraclinoid internal carotid arteries. Anterior cerebral arteries: Patent A1 and A2 segments. Middle cerebral arteries: Patent M1 and M2 segments. Posterior cerebral arteries: Patent P1 and P2. Vertebro-basilar system: Patent. Nonstenotic calcific plaque at the intradural left vertebral artery and is distal to the origin of the right posterior inferior cerebellar artery. Anatomical variants: Anterior communicating artery :Present Posterior communicating arteries: Not visualized. Vertebral arteries: Left dominant. IMPRESSION: 1. No intracranial arterial stenosis or occlusion or vascular malformation. 2. Nonstenotic calcific plaque at the intradural left vertebral artery distal to the origin of the right posterior inferior cerebellar artery. 3. Nonstenotic calcific plaque of the bilateral cavernous and supraclinoid internal carotid arteries appear Signed by: Dr. Josh Mclaughlin M.D. on 12/28/2019 3:27 PM Dictated By: JOSH SAEZ MD 1527 Transcribed By: JOSELYN on 12/28/19 1527 COPY TO: MYRNA SALAS DO CHEST SINGLE (PORTABLE) 2019-12-28 13:25:00 [place] [address] Patient Name: SARAH MORATAYA MR #: [id number] : 1955 Age/Sex: 64/M Req #: [id number] Adm Physician: Ordered by: MYRNA SALAS DO Report #: [id number] Location: Room/Bed: Procedure: [id number] DX/CHEST SINGLE (PORTABLE) Exam Date: Exam Time: REPORT STATUS: Signed EXAMINATION: CHEST SINGLE (PORTABLE) INDICATION: Dizziness COMPARISON: Chest radiograph 04/17/2019 FINDINGS: LINES/TUBES:None LUNGS:The lungs are well-inflated. No focal consolidation or pulmonary edema. PLEURA:No pleural effusion or pneu mothorax. MEDIASTINUM:The cardiomediastinal silhouette appears normal in size and shape. BONES/SOFT TISSUES:No acute osseous injury. ABDOMEN:No free air under the diaphragm. IMPRESSION: No focal pneumonia or pulmonary edema. Signed by: Clint Fabian MD on 12/28/2019 1:25 PM Dictated By: CLINT FABIAN MD 1325 Transcribed By: JOSELYN on 12/28/19 1325 COPY TO: MYRNA SALAS DO Urine color determination 2019-12-28 12:16:00 Test Item Urine Color (test code = 5778-6) YELLOW YELLOW [facility] [id number] 12:16:00* Test Item Value Reference Range Interpretation Comments Urine Clarity (test code = 38584-6) [facility] by Test strip 2019-12-28 12:16:00* Test Item Value Reference Range Interpretation Comments Urine Specific [place] (test code = 5811-5) 1.025 1.010-1.02 5 [facility] measurement by automated test [id number] 12:16:00* Test Item Value Reference Range Interpretation Comments Urine pH (test code = 57341-1) 7 5-7 [facility] leukocyte esterase detection by [id number] 12:16:00* Test Item Value Reference Range Interpretation Comments Urine Leukocyte Esterase (test code = 5799-2) NEGATIVE NEGATIVE [facility] nitrite [id number] 12:16:00* Test Item Value Reference Range Interpretation Comments Urine Nitrite (test code = 87668-5) NEGATIVE NEGATIVE [facility] protein measurement by test strip (mass/volume)2019-12-28 12:16:00* Test Item Value Reference Range Interpretation Comments Urine Protein (test code = 5804-0) TRACE NEGATIVE [facility] glucose [id number] 12:16:00* Test Item Value Reference Range Interpretation Comments Urine Glucose (UA) (test code = 2349-9) NEGATIVE NEGATIVE [facility] ketones detection by automated test [id number] 12:16:00* Test Item Value Reference Range Interpretation Comments Urine Ketones (test code = 81541-6) 1+ NEGATIVE [facility] urobilinogen measurement by test strip (mass/volume)2019-12-28 12:16:00* Test Item Value Reference Range Interpretation Comments Urine Urobilinogen (test code = 01868-6) 0.2 0.2-1 [facility] total bilirubin measurement (mass/volume)2019-12-28 12:16:00* Test Item Value Reference Range Interpretation Comments Urine Bilirubin (test code = 1978-6) NEGATIVE NEGATIVE [facility] erythrocytes [id number] 12:16:00* Test Item Value Reference Range Interpretation Comments Urine Blood (test code = 19517-0) NEGATIVE NEGATIVE [facility] urine sediment leukocyte count by microscopy (number/high power field)2019-12-28 12:16:00* Test Item Value Reference Range Interpretation Comments Urine WBC (test code = 5821-4) 0-5 0-5 [facility]throcytes detection in urine sediment by light qpyzmhsoxx9959-65-50 12:16:00* Test Item Value Reference Range Interpretation Comments Urine RBC (test code = 38160-7) 0-5 0-5 [facility]acteria detection in urine sediment by light [id number] 12:16:00* Test Item Value Reference Range Interpretation Comments Urine Bacteria (test code = 38926-7) RARE NONE [facility] TylerEpithelial cells detection in urine sediment by light pigoeyywac6894-09-97 12:16:00* Test Item Value Reference Range Interpretation Comments Urine Epithelial Cells (test code = 85055-6) RARE NONE [facility] TylerMucus detection in urine sediment by light lwafbaslyk4993-14-71 12:16:00* Test Item Value Reference Range Interpretation Comments Urine Mucus (test code = 8247-9) FEW RARE [facility] Tyler[facility] leukocytes automated count (number/volume)2019-12-28 11:23:00* Test Item Value Reference Range Interpretation Comments White Blood Count (test code = 6690-2) 5.57 4.8-10.8 [facility] erythrocytes automated count (number/volume)2019-12-28 11:23:00* Test Item Value Reference Range Interpretation Comments Red Blood Count (test code = 789-8) 5.07 4.3-5.7 [facility] hemoglobin measurement (moles/volume)2019-12-28 11:23:00* Test Item Value Reference Range Interpretation Comments Hemoglobin (test code = 13153-7) 14.4 14.0-18.0 [facility] Tyler[facility] blood hematocrit (volume fraction)2019-12-28 11:23:00* Test Item Value Reference Range Interpretation Comments Hematocrit (test code = 4544-3) 41.9 38.2-49.6 [facility] Tyler[facility] erythrocyte mean corpuscular wjxcxj6396-43-82 11:23:00* Test Item Value Reference Range Interpretation Comments Mean Corpuscular Volume (test code = 787-2) 82.6 81-99 [facility] Tyler[facility] erythrocyte mean corpuscular hemoglobin (mass per erythrocyte)2019-12-28 11:23:00* Test Item Value Reference Range Interpretation Comments Mean Corpuscular Hemoglobin (test code = 785-6) 28.4 28-32 [facility] Tyler[facility] erythrocyte mean corpuscular hemoglobin concentration measurement (mass/volume)2019-12-28 11:23:00* Test Item Value Reference Range Interpretation Comments Mean Corpuscular Hemoglobin Concent (test code = 786-4) 34.4 31-35 [facility] TylerRDW UjyUl-Xbm8599-81-17 11:23:00* Test Item Value Reference Range Interpretation Comments Red Cell Distribution Width (test code = 06792-1) 11.9 11.7 -14.4 [facility] Tyler[facility] blood platelet count (count/volume)2019-12-28 11:23:00* Test Item Value Reference Range Interpretation Comments Platelet Count (test code = 777-3) 260 140-360 [facility] TylerAutomated blood segmented neutrophil count as percentage of total jbwnykqlmc9930-18-65 11:23:00* Test Item Value Reference Range Interpretation Comments Neutrophils (%) (Auto) (test code = 21022-2) 59.2 38.7-80.0 [facility] Tyler[facility]omat blood lymphocyte count as percentage ot total nmdnllzocb3247-31-60 11:23:00* Test Item Value Reference Range Interpretation Comments Lymphocytes (%) (Auto) (test code = 736-9) 21.4 18.0-39.1 [facility] Tyler[facility] blood monocyte count as percentage of total sypcdftnwv5808-74-25 11:23:00* Test Item Value Reference Range Interpretation Comments Monocytes (%) (Auto) (test code = 5905-5) 14.2 4.4-11.3 [facility] Tyler[facility] blood eosinophil count as percentage of total pvzouyabru5204-33-26 11:23:00* Test Item Value Reference Range Interpretation Comments Eosinophils (%) (Auto) (test code = 713-8) 2.9 0.0-6.0 [facility] Tyler[facility] blood basophil count as percentage of total aeziiprbmt6199-64-15 11:23:00* Test Item Value Reference Range Interpretation Comments Basophils (%) (Auto) (test code = 706-2) 1.4 0.0-1.0 [facility] TylerFluoroscopic procedure less than one hour vywjqzid9016-20-01 11:23:00* Test Item Value Reference Range Interpretation Comments IM GRANULOCYTES % (test code = IM GRANULOCYTES %) 0.9 0.0- 1.0 [facility] Tyler[facility] blood neutrophil count 2019-12-28 11:23:00* Test Item Value Reference Range Interpretation Comments Neutrophils # (Auto) (test code = 751-8) 3.3 2.1-6.9 [facility] Tyler[facility] lymphocytes count (number/volume) 2019-12-28 11:23:00* Test Item Value Reference Range Interpretation Comments Lymphocytes # (Auto) (test code = 22059-5) 1.2 1.0-3.2 [facility] Tyler[facility] monocytes automated count (number/volume)2019-12-28 11:23:00* Test Item Value Reference Range Interpretation Comments Monocytes # (Auto) (test code = 742-7) 0.8 0.2-0.8 [facility] Tyler[facility] blood eosinophil count 2019-12-28 11:23:00* Test Item Value Reference Range Interpretation Comments Eosinophils # (Auto) (test code = 711-2) 0.2 0.0-0.4 [facility] Tyler[facility] blood basophil count (count/volume)2019-12-28 11:23:00* Test Item Value Reference Range Interpretation Comments Basophils # (Auto) (test code = 704-7) 0.1 0.0-0.1 [facility] TylerFluoroscopic procedure less than one hour [id number] 11:23:00* Test Item Value Reference Range Interpretation Comments Absolute Immature Granulocyte (auto (hayden t code = Absolute Immature Granulocyte (auto) 0.05 0-0.1 [facility] TylerProthrombin time (PT) in platelet poor plasma by coagulation [id number] 11:23:00* Test Item Value Reference Range Interpretation Comments Prothrombin Time (test code = 5902-2) 12.9 11.9-14.5 [facility] TylerINR in Platelet poor plasma by Coagulation ayqed4128-11-18 11:23:00* Test Item Value Reference Range Interpretation Comments Prothromb Time International Ratio (test code = 6301-6) 0.93 Oral Anticoagulant Therapy INR Values:1. Low Intensity Therapy 1.5 - 2.02 . Moderate Intensity Therapy 2.0 - 3.03. High Intensity Therapy(1) 2.5 - 3. 54. High Intensity Therapy(2) 3.0 - 4.05. Panic Value INR > 5.0 [facility] sodium measurement (moles/volume)2019-12-28 11:23:00* Test Item Value Reference Range Interpretation Comments Sodium Level (test code = 2951-2) 139 136-145 [facility] plasma potassium measurement (moles/volume)2019-12-28 11:23:00* Test Item Value Reference Range Interpretation Comments Potassium Level (test code = 2823-3) 3.3 3.5-5.1 [facility] plasma chloride measurement (moles/volume)2019-12-28 11:23:00* Test Item Value Reference Range Interpretation Comments Chloride Level (test code = 2075-0) 105 98-107 [facility] or plasma carbon dioxide, total measurement (moles/volume)2019-12-28 11:23:00* Test Item Value Reference Range Interpretation Comments Carbon Dioxide Level (test code = 2028-9) 19 22-29 [facility] or plasma anion [id number] 11:23:00* Test Item Value Reference Range Interpretation Comments Anion Gap (test code = 53597-8) 18.3 8-16 [facility] plasma urea nitrogen measurement (mass/volume)2019-12-28 11:23:00* Test Item Value Reference Range Interpretation Comments Blood Urea Nitrogen (test code = 3094-0) 15 7-26 [facility] or plasma creatinine measurement (mass/volume)2019-12-28 11:23:00* Test Item Value Reference Range Interpretation Comments Creatinine (test code = 2160-0) 1.34 0.72-1.25 [facility] or plasma urea nitrogen/creatinine mass [id number] 11:23:00* Test Item Value Reference Range Interpretation Comments BUN/Creatinine Ratio (test code = 3097-3) 11 6-25 [facility] TylerEstimated glomerular filtration rate (GFR) bscbmsopzfvbr3754-26-76 11:23:00* Test Item Value Reference Range Interpretation Comments Estimat Glomerular Filtration Rate (test code = 532916472) 53 >60 Ranges were taken from the National Kidney Disease Education Program and the [facility] [employer] literature.Reference ranges:60 or greater: Befveh88-56 ( for 3 consecutive months): Chronic kidney disease 15 or less: Kidney failureCH[facility]STUS [facility] – TylerGlucose zvonjqeavlq9879-91-64 11:23:00* Test Item Value Reference Range Interpretation Comments Glucose Level (test code = NIA1037) 131 74-118 [facility] or plasma calcium measurement (mass/volume)2019-12-28 11:23:00* Test Item Value Reference Range Interpretation Comments Calcium Level (test code = 83739-0) 8.6 8.4-10.2 [facility]ererum or plasma total bilirubin measurement (mass/volume)2019-12-28 11:23:00* Test Item Value Reference Range Interpretation Comments Total Bilirubin (test code = 1975-2) 0.8 0.2-1.2 [facility] TylerFluoroscopic procedure less than one hour ghbitexb8291-57-02 11:23:00* Test Item Value Reference Range Interpretation Comments Aspartate Amino Transf (AST/SGOT) (test code = Aspartate Amino Transf (AST/SGOT)) 21 5-34 [facility] plasma alanine aminotransferase measurement (enzymatic activity/volume)2019-12-28 11:23:00* Test Item Value Reference Range Interpretation Comments Alanine Aminotransferase (ALT/SGPT) (test code = 1742-6) 28 0-55 [facility] or plasma protein measurement (mass/volume)2019-12-28 11:23:00* Test Item Value Reference Range Interpretation Comments Total Protein (test code = 2885-2) 6.6 6.5-8.1 [facility]ere[facility] or plasma albumin measurement (mass/volume)2019-12-28 11:23:00* Test Item Value Reference Range Interpretation Comments Albumin (test code = 1751-7) 4.2 3.5-5.0 [facility] TylerPlasma globulin measurement (mass/volume) 2019-12-28 11:23:00* Test Item Value Reference Range Interpretation Comments Globulin (test code = 52797-9) 2.4 2.3-3.5 [facility] or plasma albumin/globulin mass uooef5145-16-52 11:23:00* Test Item Value Reference Range Interpretation Comments Albumin/Globulin Ratio (test code = 1759-0) 1.8 0.8-2.0 [facility] or plasma alkaline phosphatase measurement (enzymatic activity/volume)2019-12-28 11:23:00* Test Item Value Reference Range Interpretation Comments Alkaline Phosphatase (test code = 6768-6) 53 40-150 [facility]rum or plasma creatine kinase measurement (enzymatic activity/volume)2019-12-28 11:23:00* Test Item Value Reference Range Interpretation Comments Creatine Kinase (test code = 2157-6) 55 30-200 [facility]ererum or plasma creatine kinase MB measurement (mass/volume)2019-12-28 11:23:00* Test Item Value Reference Range Interpretation Comments Creatine Kinase MB (test code = 01275-8) 0.60 0-5.0 [facility] TylerTroponin I measurement by highly sensitive enzyme ynvdidodusp0299-45-01 11:23:00* Test Item Value Reference Range Interpretation Comments Troponin I (test code = 72530-2) < 0.001 0-0.300 [facility] TylerMRA NECK IY8455-91-28 13:21:00 [facility] [address] [place] [address] Patient Name: SARAH MORATAYA MR #: [id number] : 1955 Age/Sex: 63/M Req #: [id number] Adm Physician: ROMELIA LEARY MD Ordered by: ROMELIA LEARY MD Report #: [id number] Location: MED/SURG2 Room/Bed: [facility] [place] Procedure: [id number] MR I/MRA NECK WO Exam Date: Exam Time: REPORT STATUS: Signed EXAMINATION: Brain MRI a nd MR angiogram of the Neck CLINICAL HISTORY: Syncope, dizziness, nausea. COMPARISON: Head CT 04/15/2014 TECHNIQUE: Brain: Sagittal T2; axial DWI, T2 , FLAIR, T1-IR, T2 gradient echo; coronal FLAIR. MRA: 2D-TOF images were ob tained of the neck. BRAIN MRI FINDINGS: Parenchyma: 1. No abno rmal signal intensity 2. No mass, hemorrhage, acute or chronic infarcts. Skull: Unremarkable. Vessels: Expected flow voids present i n the major arteries and dural sinuses. Extra-axial spaces: No abnormal signal intensity or mass effect. Brain volume: Within normal limits for age. Ventricles: No hydrocephalus or displacement. Foramen magnum: Unremarkable. Sella: Unremarkable. Paranasal / mastoid sinuse s: No significant inflammatory disease. MRA OF THE [place] : The distal internal carotid, distal vertebral, basilar, and cerebral arteries are patent. No significant stenosis, occlusion, aneurysm, or arteriovenous ma lformation is seen. Anatomic variation: Anterior Communicating Artery: Pa tent Posterior Communicating Arteries: Patent bilaterally Vertebral arteries : Codominant MRA OF THE NECK: If present, stenosis of the carotid bulb s is measured based on NASCET criteria i.e area of maximum stenosis compared t o the cervical ICA distal to the bulb. Aortic arch and origin of the ves sels: Unremarkable. Right Carotid Artery: The common carotid, carotid bulb, internal and external carotid arteries at the level of the neck are norm al in caliber, and patent, no evidence of stenoses. Left Carotid Artery : The common carotid, carotid bulb, internal and external carotid arteries at the level of the neck are normal in caliber, and patent, no evidence of stenos es. Vertebral Arteries: Both are normal in morphology and caliber. Bot h are codominant. No significant stenosis is seen. IMPRESSION: 1. Normal MRI of the head. 2. Normal MR angiogram of the neck. Signed by: Dr. Jhoan Vigil M.D. on 04/18/2019 1:36 PM Dictated By: Kelsey VIGIL MD 35 Transc ribed By: JOSELYN on 04/18/191335 COPY TO: ROMELIA LEARY MD MRI BRAIN [id number] 13:21:00 [place] [address] Patient Name: SARAH MORATAYA MR #: [id number] : 1955 Age/Sex: 63/M Req #: [id number] Adm Physician: ROMELIA LEARY MD Ordered by: ROMELIA LEARY MD Report #: [id number] Location: MED/SURG2 Room/Bed: [facility] [place] Procedure: [id number] MR I/MRI BRAIN WO Exam Date: Exam Time: REPORT STATUS: Signed EXAMINATION: Brain MRI and MR angiogram of the Neck CLINICAL HISTORY: Syncope, dizziness, nausea. COMPARISON: Head CT 04/15/2014 TECHNIQUE: Brain: Sagittal T2; axial DWI, T 2, FLAIR, T1-IR, T2 gradient echo; coronal FLAIR. MRA: 2D-TOF images were o btained of the neck. BRAIN MRI FINDINGS: Parenchyma: 1. No abn ormal signal intensity 2. No mass, hemorrhage, acute or chronic infarcts. Skull: Unremarkable. Vessels: Expected flow voids present in the major arteries and dural sinuses. Extra-axial spaces: No abnorma l signal intensity or mass effect. Brain volume: Within normal limits for age. Ventricles: No hydrocephalus or displacement. Foramen magnum : Unremarkable. Sella: Unremarkable. Paranasal / mastoid sinus es: No significant inflammatory disease. MRA OF THE [place] : The distal internal carotid, distal vertebral, basilar, and cerebral arteries are patent. No significant stenosis, occlusion, aneurysm, or arteriovenous m alformation is seen. Anatomic variation: Anterior Communicating Artery: P atent Posterior Communicating Arteries: Patent bilaterally Vertebral arterie s: Codominant MRA OF THE NECK: If present, stenosis of the carotid bul bs is measured based on NASCET criteria i.e area of maximum stenosis compared to the cervical ICA distal to the bulb. Aortic arch and origin of the ve ssels: Unremarkable. Right Carotid Artery: The common carotid, carotid bulb, internal and external carotid arteries at the level of the neck are nor mal in caliber, and patent, no evidence of stenoses. Left Carotid Arter y: The common carotid, carotid bulb, internal and external carotid arteries at the level of the neck are normal in caliber, and patent, no evidence of steno ses. Vertebral Arteries: Both are normal in morphology and caliber. Arik th are codominant. No significant stenosis is seen. IMPRESSION: 1 . Normal MRI of the head. 2. Normal MR angiogram of the neck. Signed by: Dr. Jhoan Vigil M.D. on 04/18/2019 1:36 PM Dictated By: JHOAN VIGIL MD 1336 Trans cribed By: JOSELYN on 04/18/19 1336 COPY TO: ROMELIA LEARY MD Sodium Zplzv5986-21-66 05:55:00* Test Item Value Reference Range Interpretation Comments Sodium Level (test code = 2951-2) 137 136-145 [facility] TylerPotassium Cakzo4313-42-34 05:55:00* Test Item Value Reference Range Interpretation Comments Potassium Level (test code = 2823-3) 4.1 3.5-5.1 [facility] TylerChloride Mfxhp8982-72-77 05:55:00* Test Item Value Reference Range Interpretation Comments Chloride Level (test code = 2075-0) 106 98-107 [facility] TylerCarbon Dioxide Jiiju8751-27-38 05:55:00* Test Item Value Reference Range Interpretation Comments Carbon Dioxide Level (test code = 2028-9) 23 22-29 [facility] TylerAnion Mbe7735-23-53 05:55:00* Test Item Value Reference Range Interpretation Comments Anion Gap (test code = 97251-5) 12.1 8-16 [facility] TylerBlood Urea Ibeuyngf5007-54-25 05:55:00* Test Item Value Reference Range Interpretation Comments Blood Urea Nitrogen (test code = 3094-0) 14 7-26 [facility] TylerCreatinine2020-01-07 05:55:00* Test Item Value Reference Range Interpretation Comments Creatinine (test code = 2160-0) 1.34 0.72-1.25 H [facility] TylerBUN/Creatinine Wrxhf6443-01-28 05:55:00* Test Item Value Reference Range Interpretation Comments BUN/Creatinine Ratio (test code = 3097-3) 10 6- [facility] TylerEstimat Glomerular Filtration Rate 2019-04-18 05:55:00* Test Item Value Reference Range Interpretation Comments Estimat Glomerular Filtration Rate (test code = 222564818) 53 >60 L Ranges were taken from the National Kidney Disease Education Program and the [facility] Foundation literature.Reference ranges:60 or greater: Caweuj06-46 ( for 3 consecutive months): Chronic kidney disease 15 or less: Kidney failureCHRISTUS Mother Frances Hospital – TylerGlucose Ypmhk6901-00-13 05:55:00* Test Item Value Reference Range Interpretation Comments Glucose Level (test code = TOE1466) 89 74-118 [facility] TylerCalcium Qoqkf1390-62-53 05:55:00* Test Item Value Reference Range Interpretation Comments Calcium Level (test code = 78985-0) 8.6 8.4-10.2 [facility] TylerMagnesium Utkvj5320-13-14 05:55:00* Test Item Value Reference Range Interpretation Comments Magnesium Level (test code = 79942-4) 1.9 1.3-2.1 [facility] TylerWhite Blood Scrdm0330-66-63 05:44:00* Test Item Value Reference Range Interpretation Comments White Blood Count (test code = 6690-2) 7.42 4.8-10.8 [facility] TylerRed Blood Iehew9553-45-71 05:44:00* Test Item Value Reference Range Interpretation Comments Red Blood Count (test code = 789-8) 4.73 4.3-5.7 [facility] TylerHemoglobin2020-01-07 05:44:00* Test Item Value Reference Range Interpretation Comments Hemoglobin (test code = 99965-1) 13.5 14.0-18.0 L [facility] TylerHematocrit2020-01-07 05:44:00* Test Item Value Reference Range Interpretation Comments Hematocrit (test code = 4544-3) 40.0 38.2-49.6 [facility] TylerMean Corpuscular Dosbez6991-83-44 05:44:00* Test Item Value Reference Range Interpretation Comments Mean Corpuscular Volume (test code = 787-2) 84.6 81-99 [facility] TylerMean Corpuscular Yggtvdsirg3645-15-27 05:44:00* Test Item Value Reference Range Interpretation Comments Mean Corpuscular Hemoglobin (test code = 785-6) 28.5 28-32 [facility] TylerMean Corpuscular Hemoglobin Concent 2019-04-18 05:44:00* Test Item Value Reference Range Interpretation Comments Mean Corpuscular Hemoglobin Concent (test code = 786-4) 33.8 31-35 [facility] TylerRed Cell Distribution Ttnjn3650-80-12 05:44:00* Test Item Value Reference Range Interpretation Comments Red Cell Distribution Width (test code = 50570-5) 12.5 11.7 -14.4 [facility] TylerPlatelet Hdewo0695-62-27 05:44:00* Test Item Value Reference Range Interpretation Comments Platelet Count (test code = 777-3) 253 140-360 [facility] TylerNeutrophils (%) (Auto)2019-04-18 05:44:00 * Test Item Value Reference Range Interpretation Comments Neutrophils (%) (Auto) (test code = 19083-3) 76.2 38.7-80.0 [facility] TylerLymphocytes (%) (Auto)2019-04-18 05:44:00 * Test Item Value Reference Range Interpretation Comments Lymphocytes (%) (Auto) (test code = 736-9) 12.1 18.0-39.1 L [facility] TylerMonocytes (%) (Auto)2019-04-18 05:44:00* Test Item Value Reference Range Interpretation Comments Monocytes (%) (Auto) (test code = 5905-5) 9.2 4.4-11.3 [facility] TylerEosinophils (%) (Auto)2019-04-18 05:44:00 * Test Item Value Reference Range Interpretation Comments Eosinophils (%) (Auto) (test code = 713-8) 1.3 0.0-6.0 [facility] TylerBasophils (%) (Auto)2019-04-18 05:44:00* Test Item Value Reference Range Interpretation Comments Basophils (%) (Auto) (test code = 706-2) 0.8 0.0-1.0 [facility] TylerIM GRANULOCYTES %2019-04-18 05:44:00* Test Item Value Reference Range Interpretation Comments IM GRANULOCYTES % (test code = IM GRANULOCYTES %) 0.4 0.0- 1.0 [facility] TylerNeutrophils # (Auto)2019-04-18 05:44:00* Test Item Value Reference Range Interpretation Comments Neutrophils # (Auto) (test code = 751-8) 5.7 2.1-6.9 [facility] TylerLymphocytes # (Auto)2019-04-18 05:44:00* Test Item Value Reference Range Interpretation Comments Lymphocytes # (Auto) (test code = 78475-4) 0.9 1.0-3.2 L [facility] TylerMonocytes # (Auto)2019-04-18 05:44:00* Test Item Value Reference Range Interpretation Comments Monocytes # (Auto) (test code = 742-7) 0.7 0.2-0.8 [facility] TylerEosinophils # (Auto)2019-04-18 05:44:00* Test Item Value Reference Range Interpretation Comments Eosinophils # (Auto) (test code = 711-2) 0.1 0.0-0.4 [facility] TylerBasophils # (Auto)2019-04-18 05:44:00* Test Item Value Reference Range Interpretation Comments Basophils # (Auto) (test code = 704-7) 0.1 0.0-0.1 [facility] TylerAbsolute Immature Granulocyte (auto 2019-04-18 05:44:00* Test Item Value Reference Range Interpretation Comments Absolute Immature Granulocyte (auto (hayden t code = Absolute Immature Granulocyte (auto) 0.03 0-0.1 [facility] TylerD-Dimer Quantitative (PE/DVT)2019-04-18 05:35:00* Test Item Value Reference Range Interpretation Comments D-Dimer Quantitative (PE/DVT) (test code = 99062-8) 0.21 0. 00-0.45 [facility] TylerFibrin D-dimer DDU measurement in platelet poor plasma (mass/volume)2019-04-18 03:40:00* Test Item Value Reference Range Interpretation Comments D-Dimer Quantitative (PE/DVT) (test code = 29683-4) 0.21 0. 00-0.45 [facility]ererum or plasma magnesium measurement (mass/volume)2019-04-18 03:40:00* Test Item Value Reference Range Interpretation Comments Magnesium Level (test code = 57200-2) 1.9 1.3-2.1 [facility] TylerCreatine Kinase UJ1001-62-60 19:42:00* Test Item Value Reference Range Interpretation Comments Creatine Kinase MB (test code = 66099-1) 0.40 0-5.0 [facility] TylerTroponin L0631-61-24 19:42:00* Test Item Value Reference Range Interpretation Comments Troponin I (test code = WVP6716) < 0.001 0-0.300 [facility] TylerCreatine Fvivur0916-76-95 19:25:00* Test Item Value Reference Range Interpretation Comments Creatine Kinase (test code = 2157-6) 103 30-200 [facility] TylerCHEST SINGLE (PORTABLE)2019-04-17 10:15:00 [facility] [address] [place] [address] Patient Name: SARAH MORATAYA MR #: [id number] : 1955 Age/Sex: 63/M Req #: [id number] Adm Physician: Ordered by: MYRNA SALAS DO Report #: [id number] Location: ER Room/Bed: Procedure: [id number] DX /CHEST SINGLE (PORTABLE) Exam Date: 04/17/19 Exam Ti me: 1001 REPORT STATUS: Signed E XAMINATION: CHEST SINGLE (PORTABLE) INDICATION: Chest pain COMPAR DAINA: Chest radiograph 06/18/2017 FINDINGS: LINES/TUBES:EKG leads o verlie the chest. LUNGS:The lungs are well-inflated. No focal consolidation or pulmonary edema. PLEURA:No pleural effusion or pneumothorax. MEDIA STINUM:The cardiomediastinal silhouette appears normal in size and shape. B ONES/SOFT TISSUES:No acute osseous injury. ABDOMEN:No free air under the di aphragm. IMPRESSION: No focal pneumonia or pulmonary edema. Sign ed by: Clint Fabian MD on 04/17/2019 10:16 AM Dictated By: CLINT FABIAN MD El ectronically Signed By: CLINT FABIAN MD on 04/17/19 1016 Transcribed By: JOSELYN on 04/17/19 1016 COPY TO: MYRNA SALAS DO Total Bilirubin 2019-04-17 10:10:00* Test Item Value Reference Range Interpretation Comments Total Bilirubin (test code = 1975-) 1.0 0.2-1.2 [facility] TylerAspartate Amino Transf (AST/SGOT) 2019-04-17 10:10:00* Test Item Value Reference Range Interpretation Comments Aspartate Amino Transf (AST/SGOT) (test code = Aspartate Amino Transf (AST/SGOT)) 19 5-34 [facility] TylerAlanine Aminotransferase (ALT/SGPT) 2019-04-17 10:10:00* Test Item Value Reference Range Interpretation Comments Alanine Aminotransferase (ALT/SGPT) (test code = 1742-6) 24 0-55 [facility] TylerTotal Spwwxec7593-86-13 10:10:00* Test Item Value Reference Range Interpretation Comments Total Protein (test code = 2885-2) 6.4 6.5-8.1 L [facility] TylerAlbumin2020-01-06 10:10:00* Test Item Value Reference Range Interpretation Comments Albumin (test code = 1751-7) 3.9 3.5-5.0 [facility] TylerGlobulin2020-01-06 10:10:00* Test Item Value Reference Range Interpretation Comments Globulin (test code = 35254-5) 2.5 2.3-3.5 [facility] TylerAlbumin/Globulin Vzniu0345-59-61 10:10:00 * Test Item Value Reference Range Interpretation Comments Albumin/Globulin Ratio (test code = 1759-0) 1.6 0.8-2.0 [facility] TylerAlkaline Gpmvjldmknn3805-32-51 10:10:00* Test Item Value Reference Range Interpretation Comments Alkaline Phosphatase (test code = 6768-6) 48 40-150 [facility] Centerodium Pzjyj2508-63-88 03:01:00* Test Item Value Reference Range Interpretation Comments Sodium Level (test code = 2951-2) 140 136-145 [facility] TylerPotassium Fxayg2229-74-03 03:01:00* Test Item Value Reference Range Interpretation Comments Potassium Level (test code = 2823-3) 4.1 3.5-5.1 [facility] TylerChloride Tfsca8224-51-17 03:01:00* Test Item Value Reference Range Interpretation Comments Chloride Level (test code = 2075-0) 103 98-107 [facility] TylerCarbon Dioxide Iqsyj6035-09-69 03:01:00* Test Item Value Reference Range Interpretation Comments Carbon Dioxide Level (test code = 2028-9) 26 22-29 [facility] TylerAnion Xrf9168-60-10 03:01:00* Test Item Value Reference Range Interpretation Comments Anion Gap (test code = 43136-2) 15.1 8-16 [facility] TylerBlood Urea Qsoiirtn3215-46-71 03:01:00* Test Item Value Reference Range Interpretation Comments Blood Urea Nitrogen (test code = 3094-0) 20 7-26 [facility] TylerCreatinine2018-03-09 03:01:00* Test Item Value Reference Range Interpretation Comments Creatinine (test code = 2160-0) 1.41 0.72-1.25 H [facility] TylerBUN/Creatinine Ndfft4639-64-92 03:01:00* Test Item Value Reference Range Interpretation Comments BUN/Creatinine Ratio (test code = 3097-3) 14 6-25 [facility] TylerEstimat Glomerular Filtration Rate 2017-06-18 03:01:00* Test Item Value Reference Range Interpretation Comments Estimat Glomerular Filtration Rate (test code = 53110-7) 51 >60 L Ranges were taken from the National Kidney Disease Education Program and the [facility] Foundation literature.Reference ranges:60 or greater: Gnzysj00-94 ( for 3 consecutive months): Chronic kidney disease 15 or less: Kidney failureCHRISTUS Mother Frances Hospital – TylerGlucose Wlrnj2545-39-26 03:01:00* Test Item Value Reference Range Interpretation Comments Glucose Level (test code = FTY6071) 110 74-118 [facility] TylerCalcium Uzkyg2894-15-16 03:01:00* Test Item Value Reference Range Interpretation Comments Calcium Level (test code = 88937-6) 9.3 8.4-10.2 [facility] TylerTotal Nktzyrfwn7877-38-43 03:01:00* Test Item Value Reference Range Interpretation Comments Total Bilirubin (test code = 1975-2) 0.5 0.2-1.2 [facility] TylerAspartate Amino Transf (AST/SGOT) 2017-06-18 03:01:00* Test Item Value Reference Range Interpretation Comments Aspartate Amino Transf (AST/SGOT) (test code = Aspartate Amino Transf (AST/SGOT)) 16 5-34 [facility] TylerAlanine Aminotransferase (ALT/SGPT) 2017-06-18 03:01:00* Test Item Value Reference Range Interpretation Comments Alanine Aminotransferase (ALT/SGPT) (test code = 1742-6) 20 0-55 [facility] TylerTotal Zzeqscz1273-93-32 03:01:00* Test Item Value Reference Range Interpretation Comments Total Protein (test code = 2885-2) 7.4 6.5-8.1 [facility] TylerAlbumin2018-03-09 03:01:00* Test Item Value Reference Range Interpretation Comments Albumin (test code = 1751-7) 4.1 3.5-5.0 [facility] TylerGlobulin2018-03-09 03:01:00* Test Item Value Reference Range Interpretation Comments Globulin (test code = 45177-4) 3.3 2.3-3.5 [facility] TylerAlbumin/Globulin Vnxlc6849-55-93 03:01:00 * Test Item Value Reference Range Interpretation Comments Albumin/Globulin Ratio (test code = 1759-0) 1.2 0.8-2.0 [facility] TylerAlkaline Bsventnvqwl0957-76-18 03:01:00* Test Item Value Reference Range Interpretation Comments Alkaline Phosphatase (test code = 6768-6) 55 40-150 [facility] TylerCreatine Yezweu4441-57-25 03:01:00* Test Item Value Reference Range Interpretation Comments Creatine Kinase (test code = 2157-6) 56 30-200 [facility] TylerAmylase Bhqqi9186-39-73 03:01:00* Test Item Value Reference Range Interpretation Comments Amylase Level (test code = 1798-8) 41 25-125 [facility] TylerLipase2018-03-09 03:01:00* Test Item Value Reference Range Interpretation Comments Lipase (test code = 3040-3) 22 8-78 [facility] TylerCreatine Kinase LD9670-29-81 02:56:00* Test Item Value Reference Range Interpretation Comments Creatine Kinase MB (test code = 99779-6) 0.90 0-5.0 [facility] TylerTroponin B7894-54-82 02:56:00* Test Item Value Reference Range Interpretation Comments Troponin I (test code = MDE8888) -0.001 0-0.300 [facility] TylerD-Dimer Quantitative (PE/DVT)2017-06-18 02:47:00* Test Item Value Reference Range Interpretation Comments D-Dimer Quantitative (PE/DVT) (test code = 21771-3) 0.26 0. 00-0.45 [facility] TylerWhite Blood Xckrt4178-21-53 02:32:00* Test Item Value Reference Range Interpretation Comments White Blood Count (test code = 6690-2) 5.83 4.8-10.8 [facility] TylerRed Blood Namwe2878-48-79 02:32:00* Test Item Value Reference Range Interpretation Comments Red Blood Count (test code = 789-8) 5.37 4.3-5.7 [facility] TylerHemoglobin2018-03-09 02:32:00* Test Item Value Reference Range Interpretation Comments Hemoglobin (test code = 95537-0) 15.6 14.0-18.0 [facility] TylerHematocrit2018-03-09 02:32:00* Test Item Value Reference Range Interpretation Comments Hematocrit (test code = 4544-3) 44.9 38.2-49.6 [facility] TylerMean Corpuscular Njeqbq9876-88-31 02:32:00* Test Item Value Reference Range Interpretation Comments Mean Corpuscular Volume (test code = 787-2) 83.6 81-99 [facility] TylerMean Corpuscular Fsybjdspzx2457-35-15 02:32:00* Test Item Value Reference Range Interpretation Comments Mean Corpuscular Hemoglobin (test code = 785-6) 29.1 28-32 [facility] TylerMean Corpuscular Hemoglobin Concent 2017-06-18 02:32:00* Test Item Value Reference Range Interpretation Comments Mean Corpuscular Hemoglobin Concent (test code = 786-4) 34.7 31-35 [facility] TylerRed Cell Distribution Judgv8450-98-68 02:32:00* Test Item Value Reference Range Interpretation Comments Red Cell Distribution Width (test code = 06922-3) 12.2 11.7 -14.4 [facility] TylerPlatelet Zcbrc4234-78-06 02:32:00* Test Item Value Reference Range Interpretation Comments Platelet Count (test code = 777-3) 241 140-360 [facility] TylerNeutrophils (%) (Auto)2017-06-18 02:32:00 * Test Item Value Reference Range Interpretation Comments Neutrophils (%) (Auto) (test code = 12790-7) 60.1 38.7-80.0 [facility]Lymphocytes (%) (Auto)2017-06-18 02:32:00 * Test Item Value Reference Range Interpretation Comments Lymphocytes (%) (Auto) (test code = 736-9) 23.3 18.0-39.1 [facility] TylerMonocytes (%) (Auto)2017-06-18 02:32:00* Test Item Value Reference Range Interpretation Comments Monocytes (%) (Auto) (test code = 5905-5) 10.1 4.4-11.3 [facility] TylerEosinophils (%) (Auto)2017-06-18 02:32:00 * Test Item Value Reference Range Interpretation Comments Eosinophils (%) (Auto) (test code = 713-8) 3.8 0.0-6.0 [facility] TylerBasophils (%) (Auto)2017-06-18 02:32:00* Test Item Value Reference Range Interpretation Comments Basophils (%) (Auto) (test code = 706-2) 1.2 0.0-1.0 H [facility] TylerIM GRANULOCYTES %2017-06-18 02:32:00* Test Item Value Reference Range Interpretation Comments IM GRANULOCYTES % (test code = IM GRANULOCYTES %) 1.5 0.0- 1.0 H [facility] TylerNeutrophils # (Auto)2017-06-18 02:32:00* Test Item Value Reference Range Interpretation Comments Neutrophils # (Auto) (test code = 751-8) 3.5 2.1-6.9 [facility] TylerLymphocytes # (Auto)2017-06-18 02:32:00* Test Item Value Reference Range Interpretation Comments Lymphocytes # (Auto) (test code = 39203-5) 1.4 1.0-3.2 [facility] TylerMonocytes # (Auto)2017-06-18 02:32:00* Test Item Value Reference Range Interpretation Comments Monocytes # (Auto) (test code = 742-7) 0.6 0.2-0.8 [facility] TylerEosinophils # (Auto)2017-06-18 02:32:00* Test Item Value Reference Range Interpretation Comments Eosinophils # (Auto) (test code = 711-2) 0.2 0.0-0.4 [facility] TylerBasophils # (Auto)2017-06-18 02:32:00* Test Item Value Reference Range Interpretation Comments Basophils # (Auto) (test code = 704-7) 0.1 0.0-0.1 [facility] TylerAbsolute Immature Granulocyte (auto 2017-06-18 02:32:00* Test Item Value Reference Range Interpretation Comments Absolute Immature Granulocyte (auto (hayden t code = Absolute Immature Granulocyte (auto) 0.09 0-0.1 [facility] TylerCreatine Kinase [id number] 03:25:00* Test Item Value Reference Range Interpretation Comments Creatine Kinase MB (test code = 70745-4) 0.60 0-5.0 [facility] TylerTroponin [id number] 03:25:00* Test Item Value Reference Range Interpretation Comments Troponin I (test code = CAH9936) -0.001 0-0.300 [facility] Pevyh4305-47-78 03:21:00* Test Item Value Reference Range Interpretation Comments Sodium Level (test code = 2951-2) 138 136-145 [facility] TylerPotassium Prhly0372-55-15 03:21:00* Test Item Value Reference Range Interpretation Comments Potassium Level (test code = 2823-3) 4.3 3.5-5.1 [facility] TylerChloride Ivtrj8379-72-84 03:21:00* Test Item Value Reference Range Interpretation Comments Chloride Level (test code = 2075-0) 103 98-107 [facility] TylerCarbon Dioxide Qllsl8023-91-70 03:21:00* Test Item Value Reference Range Interpretation Comments Carbon Dioxide Level (test code = 2028-9) 24 22-29 [facility] TylerAnion Bwz2430-26-80 03:21:00* Test Item Value Reference Range Interpretation Comments Anion Gap (test code = 97805-8) 15.3 8-16 [facility] TylerBlood Urea Tsluyxlg9677-52-35 03:21:00* Test Item Value Reference Range Interpretation Comments Blood Urea Nitrogen (test code = 3094-0) 16 7-26 [facility] TylerCreatinine2018-02-27 03:21:00* Test Item Value Reference Range Interpretation Comments Creatinine (test code = 2160-0) 1.31 0.72-1.25 H [facility] TylerBUN/Creatinine Rjwjb2015-56-90 03:21:00* Test Item Value Reference Range Interpretation Comments BUN/Creatinine Ratio (test code = 3097-3) 12 6- [facility] TylerEstimat Glomerular Filtration Rate 2017-06-08 03:21:00* Test Item Value Reference Range Interpretation Comments Estimat Glomerular Filtration Rate (test code = 13665-8) 55 >60 L Ranges were taken from the National Kidney Disease Education Program and the [facility] literature.Reference ranges:60 or greater: Sojjuy20-95 ( for 3 consecutive months): Chronic kidney disease 15 or less: Kidney failureCHRISTUS [facility] – TylerGlucose Dvsou7616-24-17 03:21:00* Test Item Value Reference Range Interpretation Comments Glucose Level (test code = MNH6810) 112 74-118 [facility] TylerCalcium Thtri2342-78-18 03:21:00* Test Item Value Reference Range Interpretation Comments Calcium Level (test code = 29480-6) 9.4 8.4-10.2 [facility] TylerTotal Frsjfouff4950-07-82 03:21:00* Test Item Value Reference Range Interpretation Comments Total Bilirubin (test code = 1975-2) 0.6 0.2-1.2 [facility] TylerAspartate Amino Transf (AST/SGOT) 2017-06-08 03:21:00* Test Item Value Reference Range Interpretation Comments Aspartate Amino Transf (AST/SGOT) (test code = Aspartate Amino Transf (AST/SGOT)) 16 5-34 [facility] TylerAlanine Aminotransferase (ALT/SGPT) 2017-06-08 03:21:00* Test Item Value Reference Range Interpretation Comments Alanine Aminotransferase (ALT/SGPT) (test code = 1742-6) 21 0-55 [facility] TylerTotal Swqeabs5001-04-00 03:21:00* Test Item Value Reference Range Interpretation Comments Total Protein (test code = 2885-2) 7.3 6.5-8.1 [facility] TylerAlbumin2018-02-27 03:21:00* Test Item Value Reference Range Interpretation Comments Albumin (test code = 1751-7) 4.1 3.5-5.0 [facility] TylerGlobulin2018-02-27 03:21:00* Test Item Value Reference Range Interpretation Comments Globulin (test code = 26346-1) 3.2 2.3-3.5 [facility] TylerAlbumin/Globulin Shjzl6356-77-06 03:21:00 * Test Item Value Reference Range Interpretation Comments Albumin/Globulin Ratio (test code = 1759-0) 1.3 0.8-2.0 [facility] TylerAlkaline Homdetbtyhr3770-27-68 03:21:00* Test Item Value Reference Range Interpretation Comments Alkaline Phosphatase (test code = 6768-6) 57 40-150 [facility] TylerCreatine Hvmuvf8446-11-19 03:21:00* Test Item Value Reference Range Interpretation Comments Creatine Kinase (test code = 2157-6) 71 30-200 [facility] TylerD-Dimer Quantitative (PE/DVT)2017-06-08 03:12:00* Test Item Value Reference Range Interpretation Comments D-Dimer Quantitative (PE/DVT) (test code = 35508-6) 0.28 0. 00-0.45 [facility] TylerWhite Blood Xhwdw2885-78-79 03:03:00* Test Item Value Reference Range Interpretation Comments White Blood Count (test code = 6690-2) 7.14 4.8-10.8 [facility] TylerRed Blood Qvrfk3671-51-54 03:03:00* Test Item Value Reference Range Interpretation Comments Red Blood Count (test code = 789-8) 5.30 4.3-5.7 [facility] TylerHemoglobin2018-02-27 03:03:00* Test Item Value Reference Range Interpretation Comments Hemoglobin (test code = 65272-2) 15.5 14.0-18.0 [facility] TylerHematocrit2018-02-27 03:03:00* Test Item Value Reference Range Interpretation Comments Hematocrit (test code = 4544-3) 43.9 38.2-49.6 [facility] TylerMean Corpuscular Totlgq6978-10-84 03:03:00* Test Item Value Reference Range Interpretation Comments Mean Corpuscular Volume (test code = 787-2) 82.8 81-99 [facility] TylerMean Corpuscular Rahfuwlyem3084-19-72 03:03:00* Test Item Value Reference Range Interpretation Comments Mean Corpuscular Hemoglobin (test code = 785-6) 29.2 28-32 [facility] TylerMean Corpuscular Hemoglobin Concent 2017-06-08 03:03:00* Test Item Value Reference Range Interpretation Comments Mean Corpuscular Hemoglobin Concent (test code = 786-4) 35.3 31-35 H [facility] TylerRed Cell Distribution Qqlwl0843-38-34 03:03:00* Test Item Value Reference Range Interpretation Comments Red Cell Distribution Width (test code = 54806-4) 12.4 11.7 -14.4 [facility] TylerPlatelet Nafqe5298-68-95 03:03:00* Test Item Value Reference Range Interpretation Comments Platelet Count (test code = 777-3) 240 140-360 [facility] TylerNeutrophils (%) (Auto)2017-06-08 03:03:00 * Test Item Value Reference Range Interpretation Comments Neutrophils (%) (Auto) (test code = 47470-6) 72.4 38.7-80.0 [facility] TylerLymphocytes (%) (Auto)2017-06-08 03:03:00 * Test Item Value Reference Range Interpretation Comments Lymphocytes (%) (Auto) (test code = 736-9) 15.5 18.0-39.1 L [facility] TylerMonocytes (%) (Auto)2017-06-08 03:03:00* Test Item Value Reference Range Interpretation Comments Monocytes (%) (Auto) (test code = 5905-5) 7.7 4.4-11.3 [facility] TylerEosinophils (%) (Auto)2017-06-08 03:03:00 * Test Item Value Reference Range Interpretation Comments Eosinophils (%) (Auto) (test code = 713-8) 2.1 0.0-6.0 [facility] TylerBasophils (%) (Auto)2017-06-08 03:03:00* Test Item Value Reference Range Interpretation Comments Basophils (%) (Auto) (test code = 706-2) 1.0 0.0-1.0 [facility] TylerIM GRANULOCYTES %2017-06-08 03:03:00* Test Item Value Reference Range Interpretation Comments IM GRANULOCYTES % (test code = IM GRANULOCYTES %) 1.3 0.0- 1.0 H [facility] TylerNeutrophils # (Auto)2017-06-08 03:03:00* Test Item Value Reference Range Interpretation Comments Neutrophils # (Auto) (test code = 751-8) 5.2 2.1-6.9 [facility] TylerLymphocytes # (Auto)2017-06-08 03:03:00* Test Item Value Reference Range Interpretation Comments Lymphocytes # (Auto) (test code = 11311-8) 1.1 1.0-3.2 [facility] TylerMonocytes # (Auto)2017-06-08 03:03:00* Test Item Value Reference Range Interpretation Comments Monocytes # (Auto) (test code = 742-7) 0.6 0.2-0.8 [facility] TylerEosinophils # (Auto)2017-06-08 03:03:00* Test Item Value Reference Range Interpretation Comments Eosinophils # (Auto) (test code = 711-2) 0.2 0.0-0.4 [facility] TylerBasophils # (Auto)2017-06-08 03:03:00* Test Item Value Reference Range Interpretation Comments Basophils # (Auto) (test code = 704-7) 0.1 0.0-0.1 [facility] TylerAbsolute Immature Granulocyte (auto 2017-06-08 03:03:00* Test Item Value Reference Range Interpretation Comments Absolute Immature Granulocyte (auto (hayden t code = Absolute Immature Granulocyte (auto) 0.09 0-0.1 [facility] TylerCHE[place] [facility] [place] [address] Patient Name: SARAH MORATAYA MR #: [id number] : 1955 Age/Sex: 61/M Req #: [id number] Adm Physician: Ordered by: NUBIA OCHOA MD Report #: [id number] Location: ER Room/Bed: Procedure: [id number] DX/CHEST 2 VIEWS Exam Da te: 06/18/17 Exam Time: 0237 REPORT STATUS: Sig amada EXAMINATION: CHEST 2 VIEWS INDICATION: Right chest pa in. COMPARISON: 06/08/2017 FINDINGS: TUBES and LINES: None. LUNGS: Lungs are well inflated. Lungs are clear. There is no evidence of pneumonia or pulmonary edema. PLEURA: No pleural effusion or pneumothor ax. HEART AND MEDIASTINUM: The cardiomediastinal silhouette is unremarkabl e. Calcified lymph nodes in the aortopulmonary window. BONES AND SOFT TIS SUES: No acute osseous lesion. Soft tissues are unremarkable. UPPER ABD OMEN: No free air under the diaphragm. IMPRESSION: No acute thoracic abnormality. Signed by: Dr. Jose Wright M.D. on 06/18/2017 3:25 AM Dictated By: JOSE PHILLIP MD 4 Transcribed By: JOSELYN on 06/18/17324 COPY TO: NUBIA OCHOA MD US GALLBLADDER [place] [address] Patient Name: SARAH MORATAYA MR #: [id number] : 1955 Age/Sex: 61/M Req #: [id number] Adm Physician: Ordered by: NUBIA OCHOA MD Report #: [id number] Location: ER Room/Bed: Procedure: [id number] US/US GALLBLADDER Exam D ate: Exam Time: REPORT STATUS: Signed EXAM : Right Upper Quadrant Ultrasound INDICATION: Right upper quadrant pain , gallstones COMPARISON: None. TECHNIQUE: Transverse and longitudinal image s of the right upper abdomen were obtained. FINDINGS: Liver: Si ze: 15.2 cm in the right midclavicular line, normal Appearance: Normal echogen icity, smooth contour Mass: No focal masses Gallbladder: Stones/Sludge: None Wall: 0.2 cm Appearance: No wall thickening, pericholecystic fluid or hydrops. Sonographic Cisse's Sign: Negative Bile Ducts: Intrahepatic Ducts: No dilatation Extrahepatic Ducts: Common bile duct measures 0.5 cm, no dilatation Pancreas: Incompletely visualized due to overlying bowel gas, but no abnormality identified involving the visualized portions of the pancre as. Kidneys: Length: Right 9.4 cm Echogenicity: Normal Collecting System: No hydronephrosis Stone: None Cyst/Mass: Minimally s eptated 1.4 x 1.6 x 1.3 cm cyst in the right kidney Vessels: Aorta: Diffi cult to visualize. Inferior Vena Cava: Difficult to visualized Main Portal V ein: 1.0 cm, normal size with hepatopetal flow. Free Fluid: No ascites or pleural effusion IMPRESSION: 1. Limited exam due to large amount of air in the bowel. 2. No evidence of gallstones or gallbladder wall thickening. Signed by: Dr. Jose Wright M.D. on 06/18/2017 3:46 AM Dictated By: BATSHEVA PHILLIP MD 5 COPY TO: Cathy OCHOA MD CHEST 2 VIEWS [place] [address] Patient Name: SARAH MORATAYA MR #: [id number] : 1955 Age/Sex: 61/M Req #: [id number] Adm Physician: Ordered by: NUBIA OCHOA MD Report #: [id number] Location: ER Room/Bed: Procedure: [id number] DX/CHEST 2 VIEWS Exam Da te: 06/08/17 Exam Time: 0305 REPORT STATUS: Sig amada EXAM: CHEST 2 VIEWS, PA and lateral ORDER DATE: 06/08/2017 2:48 AM TIME STAMP ON EXAM: 0304 hours INDICATION: Right upper chest pain COMPARISON: Non e FINDINGS: LINES/TUBES: None LUNGS: No consolidations or edema. PLEURA: No effusions or pneumothorax. HEART AND MEDIASTINUM: Normal size and contour. BONES AND SOFT TISSUES: No acute findings. IMPRESSION: No acute thoracic abnormality. Signed by: Edson Blanc on 06/08/2017 4:20 AM Dictated By: PRINCESS VILLANUEVA MD Electronically Sig amada By: PRINCESS VILLANUEVA MD on 06/08/17 0420 Transcribed By: JOSELYN on 06/08/17 0 420 COPY TO: NUBIA OCHOA MD
== END 2019-12-28 16:24 | disposition home or self-care (01) ==
LOC: ER 11:52
DX: R42 Dizziness and giddiness (principal); R11.2 Nausea with vomiting, unspecified; H93.19 Tinnitus, unspecified ear; E78.5 Hyperlipidemia, unspecified; F41.9 Anxiety disorder, unspecified
CPT/HCPCS: 36415; 70496; 71045; 80053; 81001; 82550; 82553; 84484; 85025; 85610; 93005; 99284; J1200; J2765; J7030; J8597; Q9967